=== PATIENT | female | born 1950 | race African-American/Black ===

== ENCOUNTER 2016-09-21 06:07 | Emergency (ER) | payer OTHER ==
[~2016-09-21] VITALS: Ht 162.6 cm; Wt 93.0 kg
[~2016-09-21 06:07] MED LIST: ASPIR-LOW81 MG PO; ASPIRIN81 M1 PO; BENAZEPRIL HCL5 MG PO; COREG6.25 MG PO; GLIPIZIDE5 M1 PO; GLUCOPHAGE500 MG PO; INSULIN; LANTUS5 UNITS SUBQ; LOTENSIN5 MG PO; METFORMIN HCL500 MG PO; PEPCID40 MG PO; SIMVASTATIN20 MG PO; SIMVASTATIN5 MG PO; UNOBMED
[2016-09-21 06:35] VITALS: BP 145/95
--- NOTE | 2016-09-21 07:12 | Emergency Room Report ---
History of Present Illness General Chief Complaint: General Complaint Source: Medical Record Present Illness HPI Patient is a 65-year-old female presented for generalized body pain. Patient stated she been having pain for many years. This had not change in nature. The patient reported having a prior history of COPD for which he takes Atrovent. As she reports having prior history of diabetes as well as high blood pressure. The patient states that she's had many years of the lower extremity swelling which has not been changing. Allergies: Coded Allergies: No Known Allergies (Unverified , 11/16/11) Patient History Past Medical History: see triage record Now: No Reviewed Nursing Documentation: PMH: Agreed, PSxH: Agreed Nursing Documentation-PMH Hx Cardiac Problems: Yes - [place] "2014, very recent" Hx Hypertension: Yes Hx Asthma: Yes Hx COPD: Yes Hx Diabetes: Yes Hx Cancer: No Hx Gastrointestinal Problems: Yes Hx Cerebrovascular Accident: Yes - "a long time ago" Review of Systems All Other Systems: negative except mentioned in HPI Physical Exam Vital Signs Date Time Temp Pulse Resp B/P Pulse Ox O2 Delivery O2 Flow Rate FiO2 09/21/16 06:07 97.9 89 16 137/89 98 General Appearance: well appearing, alert, GCS 15, Chronically Ill ENT: hearing grossly normal, normal pharynx, no angioedema Respiratory: chest non-tender, no rhonchi Cardiovascular #1: edema Gastrointestinal: non tender, soft, no mass Musculoskeletal: normal inspection Neurologic: normal inspection, alert Psychiatric: memory normal Skin: normal inspection Medical Decision Making Diagnostic Impression: Primary Impression: Pedal edema Additional Impression: Arthralgia ER Course This presented for generalized pain. Differential diagnosis included wasn't limited to electrolyte abnormality, edema, arthritis, allergic reaction, among others. The patient was noted to have what appears to be chronic pain. Patient was noted to be using her wheelchair. The patient stated that she had previously been diagnosed noticed as having lymph nodes in her lung. The patient seen and evaluated in emergency department and did not appear to have an emergency medical condition at this time. The patient subsequently left the hospital on her own accord. Last Vital Signs Date Time Temp Pulse Resp B/P Pulse Ox O2 Delivery O2 Flow Rate FiO2 09/21/16 06:07 97.9 89 16 137/89 98 Status: unchanged Disposition: ELOPED Condition: Stable Referrals: [facility],REFERRING (PCP) Corey Rodriguez Sep 21, 2016 07:12
== END 2016-09-21 06:35 | disposition left against medical advice (07) ==
LOC: EDBD 06:07 → EMR 06:20
DX: R60.0 Localized edema (principal); R52 Pain, unspecified; I10 Essential (primary) hypertension; J44.9 Chronic obstructive pulmonary disease, unspecified; I25.2 Old myocardial infarction; E11.9 Type 2 diabetes mellitus without complications; Z86.73 Personal history of transient ischemic attack (TIA), and cerebral infarction without residual deficits
CPT/HCPCS: 99283

== ENCOUNTER 2018-06-20 07:48 | Emergency (ER) | payer MEDICARE, OTHER ==
[~2018-06-20] VITALS: Ht 167.6 cm; Wt 72.6 kg
[2018-06-20] MEDS ORDERED: Albuterol/Ipratropium 3ml neb HHN ONE (08:00)
--- NOTE | 2018-06-20 08:09 | NUR ---
ED Nurse Note: pt was brought in by ambulance with chief complaint of generalized body weakness x [address] pt able to communicate. pt it incontinent. with moist skin. pt has productive cough, perineal care done, pt came with wheelchair and placed on bedside. ermd on bedside. will continue to monitor.
--- NOTE | 2018-06-20 08:25 | NUR ---
ED Nurse Note: rspiratory therapist on bedside giving pt nebulization
--- NOTE | 2018-06-20 08:29 | NUR ---
ED Nurse Note: able to obtain urine sample and was sent to lab.
--- NOTE | 2018-06-20 08:30 | NUR ---
ED Nurse Note: xray on bedside.
[2018-06-20 08:41] LABS: APPEARANCE,URINE CLEAR; BILIRUBIN, URINE NEGATIVE (NEGATIVE); GLUCOSE, URINE (UA) 3+ (NEGATIVE); KETONES,URINE NEGATIVE (NEGATIVE); LEUKOCYTE ESTERASE ,URINE 1+ (NEGATIVE); NITRITE,URINE NEGATIVE (NEGATIVE); PH,URINE 5 (4.5-8.0); PROTEIN,URINE 4+ (NEGATIVE); UROBILINOGEN,URINE NORMAL MG/DL (0.0-1.0)
[2018-06-20 08:54] LABS: COLOR,URINE YELLOW
[2018-06-20 08:59] VITALS: BP 162/90
[2018-06-20 09:00] LABS: BASOPHILS % (AUTO) 0.7 % (0.0-2.0); EOSINOPHILS % (AUTO) 1.9 % (0.0-3.0); HEMATOCRIT 40.1 % (37.0-47.0); HEMOGLOBIN 12.6 G/DL (12.0-16.0); LYMPHOCYTES % (AUTO) 21.3 % (20.0-45.0); MEAN CORPUSCULAR VOLUME 85 FL (80-99); MONOCYTES % (AUTO) 5.7 % (1.0-10.0); NEUTROPHILS % (AUTO) 70.5 % (45.0-75.0); PLATELET COUNT 227 K/UL (150-450); RED BLOOD COUNT 4.74 M/UL (4.20-5.40); RED CELL DISTRIBUTION WIDTH 13.1 % (11.6-14.8); WHITE BLOOD COUNT 7.6 K/UL (4.8-10.8)
[2018-06-20 09:09] LABS: ANION GAP 8 mmol/L (5-15); BLOOD UREA NITROGEN 29 mg/dL (7-18); CALCIUM 9.1 MG/DL (8.5-10.1); CARBON DIOXIDE 27 MMOL/L (21-32); CHLORIDE 102 MMOL/L (98-107); CREATININE 1.2 MG/DL (0.55-1.30); POTASSIUM 4.2 MMOL/L (3.5-5.1); SODIUM 137 MMOL/L (136-145)
[2018-06-20 09:24] LABS: ALANINE AMINOTRANSFERASE 29 U/L (12-78); ALBUMIN 2.5 G/DL (3.4-5.0); ALBUMIN/GLOBULIN RATIO 0.5 (1.0-2.7); ALKALINE PHOSPHATASE 90 U/L (46-116); ASPARTATE AMINO TRANSFERASE 29 U/L (15-37); BILIRUBIN,TOTAL 0.3 MG/DL (0.2-1.0); CKMB 0.9 NG/ML (0.0-3.6); CREATINE KINASE 80 U/L (26-308); PHOSPHORUS 3.7 MG/DL (2.5-4.9)
--- NOTE | 2018-06-20 09:36 | NUR ---
ED Nurse Note: pt asked for bedpan and provided, pt asked for food and provided.
--- NOTE | 2018-06-20 10:10 | NUR ---
ED Nurse Note: pt stated that she is not homeless and is currently living in [facility] located at [facility]. [facility] contacted [phone] to confirm but no answer at the moment. will follow up
--- NOTE | 2018-06-20 10:20 | NUR ---
ED Nurse Note: with ermd ordered and pt refused medication.ermd made aware
--- NOTE | 2018-06-20 10:34 | Diagnostic Imaging Report ---
Indication: Dyspnea Comparison: 12/29/2012 A single view chest radiograph was obtained. Findings: Suspected interstitial edema with interstitial opacities, prominent vascularity and heart size. Sternotomy is noted. IMPRESSION: Suspected mild CHF/interstitial edema
--- NOTE | 2018-06-20 11:20 | NUR ---
ED Nurse Note: pt attempted to hit RN and verbally aggressive. security called. pt stated she wants to go. pt noticed to able to stand without assistance.
[2018-06-20 11:30] VITALS: BP 162/90
--- NOTE | 2018-06-20 11:30 | NUR ---
AMA: pt left the hospital againts medical advise, pt was provided with clothing and given food. pt refused to tell where is she going. pt able to walk with steady gait along with her wheelchair and pt took all her belongings. iv removed before discharge. pt able to put on her own diaper before leaving. pt stated that she is not homeless and was living in [facility] for 2 months now.
--- NOTE | 2018-06-20 15:32 | Emergency Room Report ---
History of Present Illness General Chief Complaint: Generalized Weakness Source: Patient, EMS Present Illness HPI Patient is a 67-year-old female brought in by EMS after increased generalized weakness. Patient was noted to have been weak all over. She was noted to have some increased generalized difficulty with breathing. She had been brought in by EMS and is noted to be intermittently using a wheelchair.Patient had a prior history of bypass surgery. History is markedly limited by poor historian. Allergies: Coded Allergies: No Known Allergies (Unverified , 11/16/11) Patient History Reviewed Nursing Documentation: PMH: Agreed; PSxH: Agreed Nursing Documentation-PMH Past Medical History: No History, Except For Hx Cardiac Problems: Yes - [place] "2015, very recent" Hx Hypertension: Yes Hx Asthma: Yes - Emphysema Hx COPD: Yes Hx Diabetes: Yes Hx Cancer: No Hx Gastrointestinal Problems: Yes History Of Psychiatric Problem: Yes Hx Cerebrovascular Accident: Yes Hx Seizures: Yes Physical Exam Vital Signs Date Time Temp Pulse Resp B/P (MAP) Pulse Ox O2 Delivery O2 Flow Rate FiO2 06/20/18 07:43 97.5 80 16 162/90 100 Room Air 06/20/18 08:25 21 General Appearance: alert, mild distress, Chronically Ill Neck: limited range of motion Respiratory: wheezing Cardiovascular #1: normal inspection, edema - trace edema Gastrointestinal: normal inspection, non tender Musculoskeletal: normal inspection Neurologic: normal inspection, alert, oriented x3, responsive Skin: normal inspection Medical Decision Making Diagnostic Impression: Primary Impression: COPD (chronic obstructive pulmonary disease) Additional Impression: CHF (congestive heart failure) ER Course Patient presented for generalized weakness. Differential diagnosis included was not limited to anemia, urinary tract infection, electrolyte abnormality, hypothyroidism, myocardial infarction, myasthenia gravis, dehydration, among others. Because of complexity of patient's case laboratory testing and imaging studies were ordered. Patient was given breathing treatment. She was noted to have some generalized weakness initially. Patient subsequently stated she felt better and wanted to leave. Patient was noted to be ambulatory with assistance from her wheelchair which she was using similar to have a walker would be used.The patient was advised risk benefits alternatives of leaving AGAINST MEDICAL ADVICE and he indicated understanding and all questions are answered patient still continued want to leave and signed AGAINST MEDICAL ADVICE. Despite risks including but not limited to disability and worsening of current lifestyle. Labs Test 06/20/18 08:25 06/20/18 08:40 Urine Color Yellow Urine Appearance Clear Urine pH 5 (4.5-8.0) Urine Specific [place] 1.015 (1.005-1.035) Urine Protein 4+ (NEGATIVE) Urine Glucose (UA) 3+ (NEGATIVE) Urine Ketones Negative (NEGATIVE) Urine Blood 2+ (NEGATIVE) Urine Nitrite Negative (NEGATIVE) Urine Bilirubin Negative (NEGATIVE) Urine Urobilinogen Normal MG/DL (0.0-1.0) Urine Leukocyte Esterase 1+ (NEGATIVE) Urine RBC 2-4 /HPF (0 - 2) Urine WBC 0-2 /HPF (0 - 2) Urine Squamous Epithelial Cells Occasional /LPF Urine Bacteria Occasional /HPF (NONE) White Blood Count 7.6 K/UL (4.8-10.8) Red Blood Count 4.74 M/UL (4.20-5.40) Hemoglobin 12.6 G/DL (12.0-16.0) Hematocrit 40.1 % (37.0-47.0) Mean Corpuscular Volume 85 FL (80-99) Mean Corpuscular Hemoglobin 26.5 PG (27.0-31.0) Mean Corpuscular Hemoglobin Concent 31.3 G/DL (32.0-36.0) Red Cell Distribution Width 13.1 % (11.6-14.8) Platelet Count 227 K/UL (150-450) Mean Platelet Volume 7.5 FL (6.5-10.1) Neutrophils (%) (Auto) 70.5 % (45.0-75.0) Lymphocytes (%) (Auto) 21.3 % (20.0-45.0) Monocytes (%) (Auto) 5.7 % (1.0-10.0) Eosinophils (%) (Auto) 1.9 % (0.0-3.0) Basophils (%) (Auto) 0.7 % (0.0-2.0) Sodium Level 137 MMOL/L (136-145) Potassium Level 4.2 MMOL/L (3.5-5.1) Chloride Level 102 MMOL/L (98-107) Carbon Dioxide Level 27 MMOL/L (21-32) Anion Gap 8 mmol/L (5-15) Blood Urea Nitrogen 29 mg/dL (7-18) Creatinine 1.2 MG/DL (0.55-1.30) Estimat Glomerular Filtration Rate 54.5 mL/min (>60) Glucose Level 275 MG/DL (74-106) Lactic Acid Level 0.90 mmol/L (0.4-2.0) Calcium Level 9.1 MG/DL (8.5-10.1) Phosphorus Level 3.7 MG/DL (2.5-4.9) Magnesium Level 1.8 MG/DL (1.8-2.4) Total Bilirubin 0.3 MG/DL (0.2-1.0) Aspartate Amino Transf (AST/SGOT) 29 U/L (15-37) Alanine Aminotransferase (ALT/SGPT) 29 U/L (12-78) Alkaline Phosphatase 90 U/L (46-116) Total Creatine Kinase 80 U/L (26-308) Creatine Kinase MB 0.9 NG/ML (0.0-3.6) Creatine Kinase MB Relative Index 1.1 Troponin I 0.009 ng/mL (0.000-0.056) Pro-B-Type Natriuretic Peptide 4571 pg/mL (0-125) Total Protein 7.7 G/DL (6.4-8.2) Albumin 2.5 G/DL (3.4-5.0) Globulin 5.2 g/dL Albumin/Globulin Ratio 0.5 (1.0-2.7) Last Vital Signs Date Time Temp Pulse Resp B/P (MAP) Pulse Ox O2 Delivery O2 Flow Rate FiO2 06/20/18 08:59 98.3 89 22 162/90 99 Room Air 21 Status: improved Disposition: AGAINST MEDICAL ADVICE Condition: Stable Referrals: NOT CHOSEN [facility]/,REFERRING (PCP) Corey Rodriguez MD June 20, 2018 15:32
--- NOTE | 2018-06-20 17:40 | Cardiology Report ---
APPROVED REPORT EKG Measurement Heart [id number] Normal sinus rhythm Biatrial enlargement Voltage criteria for LVH Nonspecific T wave abnormality Prolonged QT Abnormal ECG
== END 2018-06-20 11:30 | disposition home or self-care (01) ==
LOC: EDBD 07:48 → EMR 08:15 → CANBEDREQ 11:50
DX: J44.9 Chronic obstructive pulmonary disease, unspecified (principal); I11.0 Hypertensive heart disease with heart failure; I50.9 Heart failure, unspecified; E11.9 Type 2 diabetes mellitus without complications; Z86.73 Personal history of transient ischemic attack (TIA), and cerebral infarction without residual deficits
CPT/HCPCS: 36415; 71045; 80053; 81003; 82550; 82553; 83605; 83735; 83880; 84100; 84484; 85025; 87040; 93005; 94640; 94664; 99284; J7620

== ENCOUNTER 2018-08-29 14:24 | Inpatient (IN) | payer MEDICARE, OTHER ==
[~2018-08-29] VITALS: Ht 167.6 cm; Wt 88.0 kg
--- NOTE | 2018-08-29 14:30 | NUR ---
ED Nurse Note: Patient brought in by ambulance from [facility] due to vomiting/abd pain for 1 day. patient is alert awake x4 breathing unlabored and even.
--- NOTE | 2018-08-29 14:42 | NUR ---
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
--- NOTE | 2018-08-29 14:54 | Emergency Room Report ---
History of Present Illness General Chief Complaint: Nausea, Vomiting, and Diarrhea Source: Patient, Medical Record Present Illness HPI This patient is brought in by EMS from a [id number]. This patient states that she developed nausea, vomiting and diarrhea today. She complains of diffuse crampy abdominal pain. She denies chest pain or shortness of breath. Allergies: Coded Allergies: No Known Allergies (Unverified , 11/16/11) Patient History Past Medical History: see triage record, old chart reviewed, DM, HTN, [place], CAD, COPD, GERD, CVA/TIA, seizures Past Surgical History: CABG, appy, oscar, Pertinent Family History: none Social History: Reports: drug use - Hx of polysubstance abuse Reviewed Nursing Documentation: PMH: Agreed; PSxH: Agreed Nursing Documentation-PMH Past Medical History: No History, Except For Hx Cardiac Problems: Yes - [place] "2014, very recent" Hx Hypertension: Yes Hx Asthma: Yes - Emphysema Hx COPD: Yes Hx Diabetes: Yes Hx Cancer: No Hx Gastrointestinal Problems: Yes Hx Cerebrovascular Accident: Yes Hx Seizures: Yes Review of Systems All Other Systems: negative except mentioned in HPI Physical Exam Vital Signs Date Time Temp Pulse Resp B/P (MAP) Pulse Ox O2 Delivery O2 Flow Rate FiO2 08/29/18 14:22 97.3 84 16 144/85 (104) 96 Room Air Sp02 EP Interpretation: reviewed, normal General Appearance: no apparent distress, alert, GCS 15, non-toxic Head: normocephalic, atraumatic ENT: hearing grossly normal, normal pharynx, no angioedema, normal voice Neck: full range of motion, supple/symm/no masses Respiratory: chest non-tender, lungs clear, normal breath sounds, no respiratory distress, no retraction, no accessory muscle use, speaking full sentences Cardiovascular #1: regular rate, rhythm, no edema Gastrointestinal: normal bowel sounds, soft, non-distended, no guarding, no rebound, tenderness - mild ttp diffusely Rectal: deferred Musculoskeletal: back normal, normal range of motion, swelling - BLE edema Neurologic: alert, oriented x3, responsive, speech normal, other - At baseline. Hx of CVA Psychiatric: judgement/insight normal, memory normal, mood/affect normal, no suicidal/homicidal ideation Skin: other - See RN skin exam Medical Decision Making Diagnostic Impression: Primary Impression: Pancreatitis Additional Impressions: Uncontrolled diabetes mellitus WILMAR (acute kidney injury) Nausea vomiting and diarrhea ER Course This patient is well-known to [facility]. She is medication noncompliance and has substance abuse and narcotic dependence. She presents with uncontrolled diabetes, acute kidney injury and mild pancreatitis. The patient has a complicated medical history and poor support system. She also has poor self-care. She is admitted for further evaluation and treatment. Laboratory Tests Test 08/29/18 15:05 08/29/18 16:17 White Blood Count 4.5 K/UL (4.8-10.8) L Red Blood Count 4.21 M/UL (4.20-5.40) Hemoglobin 11.2 G/DL (12.0-16.0) L Hematocrit 35.8 % (37.0-47.0) L Mean Corpuscular Volume 85 FL (80-99) Mean Corpuscular Hemoglobin 26.7 PG (27.0-31.0) L Mean Corpuscular Hemoglobin Concent 31.4 G/DL (32.0-36.0) L Red Cell Distribution Width 12.2 % (11.6-14.8) Platelet Count 144 K/UL (150-450) L Mean Platelet Volume 7.6 FL (6.5-10.1) Neutrophils (%) (Auto) 55.5 % (45.0-75.0) Lymphocytes (%) (Auto) 33.0 % (20.0-45.0) Monocytes (%) (Auto) 7.8 % (1.0-10.0) Eosinophils (%) (Auto) 2.6 % (0.0-3.0) Basophils (%) (Auto) 1.1 % (0.0-2.0) Sodium Level 137 MMOL/L (136-145) Potassium Level 4.1 MMOL/L (3.5-5.1) Chloride Level 103 MMOL/L (98-107) Carbon Dioxide Level 28 MMOL/L (21-32) Anion Gap 6 mmol/L (5-15) Blood Urea Nitrogen 31 mg/dL (7-18) H Creatinine 1.6 MG/DL (0.55-1.30) H Estimate Glomerular Filtration Rate 39.1 mL/min (>60) Glucose Level 410 MG/DL (74-106) H Calcium Level 9.2 MG/DL (8.5-10.1) Total Bilirubin 0.2 MG/DL (0.2-1.0) Aspartate Amino Transferase (AST) 31 U/L (15-37) Alanine Aminotransferase (ALT) 27 U/L (12-78) Alkaline Phosphatase 83 U/L (46-116) Total Protein 6.7 G/DL (6.4-8.2) Albumin 2.4 G/DL (3.4-5.0) L Globulin 4.3 g/dL Albumin/Globulin Ratio 0.6 (1.0-2.7) L Lipase 434 U/L (73-393) H Urine Color Pale yellow Urine Appearance Clear Urine pH 7 (4.5-8.0) Urine Specific [place] 1.010 (1.005-1.035) Urine Protein 3+ (NEGATIVE) H Urine Glucose (UA) 4+ (NEGATIVE) H Urine Ketones Negative (NEGATIVE) Urine Blood 1+ (NEGATIVE) H Urine Nitrite Negative (NEGATIVE) Urine Bilirubin Negative (NEGATIVE) Urine Urobilinogen Normal MG/DL (0.0-1.0) Urine Leukocyte Esterase Negative (NEGATIVE) Urine RBC 0-2 /HPF (0 - 2) Urine WBC 0-2 /HPF (0 - 2) Urine Squamous Epithelial Cells None /LPF (NONE/OCC) Urine Bacteria None /HPF (NONE) Last Vital Signs Date Time Temp Pulse Resp B/P (MAP) Pulse Ox O2 Delivery O2 Flow Rate FiO2 08/29/18 14:22 97.3 84 16 144/85 (104) 96 Room Air Disposition: ADMITTED INPATIENT Condition: Serious Shirlene Miles DO Aug 29, 2018 14:54
[2018-08-29 15:24] LABS: BASOPHILS % (AUTO) 1.1 % (0.0-2.0); EOSINOPHILS % (AUTO) 2.6 % (0.0-3.0); HEMATOCRIT 35.8 % (37.0-47.0); HEMOGLOBIN 11.2 G/DL (12.0-16.0); MEAN CORPUSCULAR VOLUME 85 FL (80-99); MONOCYTES % (AUTO) 7.8 % (1.0-10.0); NEUTROPHILS % (AUTO) 55.5 % (45.0-75.0); PLATELET COUNT 144 K/UL (150-450); RED BLOOD COUNT 4.21 M/UL (4.20-5.40); RED CELL DISTRIBUTION WIDTH 12.2 % (11.6-14.8); WHITE BLOOD COUNT 4.5 K/UL (4.8-10.8)
--- NOTE | 2018-08-29 15:37 | NUR ---
ED Nurse Note: patient had BM incontinent, provided soap/water/towel/diaper patient is cleaned and kept dry.
[2018-08-29 15:56] LABS: ANION GAP 6 mmol/L (5-15); BLOOD UREA NITROGEN 31 mg/dL (7-18); CALCIUM 9.2 MG/DL (8.5-10.1); CARBON DIOXIDE 28 MMOL/L (21-32); CHLORIDE 103 MMOL/L (98-107); CREATININE 1.6 MG/DL (0.55-1.30); POTASSIUM 4.1 MMOL/L (3.5-5.1); SODIUM 137 MMOL/L (136-145)
[2018-08-29 16:01] LABS: ALANINE AMINOTRANSFERASE 27 U/L (12-78); ALBUMIN 2.4 G/DL (3.4-5.0); ALBUMIN/GLOBULIN RATIO 0.6 (1.0-2.7); ALKALINE PHOSPHATASE 83 U/L (46-116); ASPARTATE AMINO TRANSFERASE 31 U/L (15-37); BILIRUBIN,TOTAL 0.2 MG/DL (0.2-1.0)
[2018-08-29 16:03] VITALS: BP 144/85
--- NOTE | 2018-08-29 16:17 | NUR ---
ED Nurse Note: notified Dr. Miles that patient is c/o arthritis pain and requesting dilaudid for pain.
[2018-08-29 17:05] LABS: APPEARANCE,URINE CLEAR; BILIRUBIN, URINE NEGATIVE (NEGATIVE); COLOR,URINE PALE YELLOW; GLUCOSE, URINE (UA) 4+ (NEGATIVE); KETONES,URINE NEGATIVE (NEGATIVE); LEUKOCYTE ESTERASE ,URINE NEGATIVE (NEGATIVE); NITRITE,URINE NEGATIVE (NEGATIVE); PH,URINE 7 (4.5-8.0); PROTEIN,URINE 3+ (NEGATIVE); UROBILINOGEN,URINE NORMAL MG/DL (0.0-1.0)
[2018-08-29] MEDS ORDERED: Morphine Sulfate 4mg/ml Inj (IV USE ONLY) IVP ONE (17:15)
[2018-08-29] MEDS ORDERED: Ketorolac 30mg Inj IV ONE (17:15)
--- NOTE | 2018-08-29 17:15 | NUR ---
ED Nurse Note: patient became extremely agitated, verbally abusive, "Why are you working so stupid?" and "how did your parents raise you up like that." patient insists that she needs pain medication,
--- NOTE | 2018-08-29 18:05 | NUR ---
ED Nurse Note: called kitchen for tray
--- NOTE | 2018-08-29 19:10 | NUR ---
HAND-OFF: Report given to Sachin BRYAN.
[2018-08-29] MEDS ORDERED: Nitroglycerin Subl 0.4mg tab SL PRN (20:00)
[2018-08-29] MEDS ORDERED: Dextrose 50% 25ml Syringe IV PRN (20:00)
[2018-08-29 20:12] VITALS: BP 153/80
--- NOTE | 2018-08-29 20:36 | NUR ---
TRANSFER TO FLOOR: Patient transferred to [facility] as ordered, per . Report given to Amaya,RN
--- NOTE | 2018-08-29 20:50 | NUR ---
NURSE NOTES: Received report from RANDI Stephenson in ED. Patient arrived on the floor at 2049. Patient is alert, awake, and verbally responsive to let her needs known. Patient is breathing unlabored and evenly without signs of distress, discomfort, or SOB noted at this time. No pain noted at this time. Patient's bed is at the lowest with brakes on and side rails up x 3 to assist with bed mobility and to promote safety. IV on the right upper arm noted and intact. Belongings reviewed and confirmed with RANDI Stephenson and patient at the bedside. Call light placed within reach. Will continue to monitor and provide care as ordered.
[2018-08-29] MEDS: Heparin 5000 units/ml inj SUBQ SCH (21:00)
[2018-08-29] MEDS ORDERED: Miralax 17gm pkt ORAL PRN (21:00)
[2018-08-29] MEDS: Carvedilol 6.25mg Tab ORAL SCH (21:59)
[2018-08-29] MEDS: NovoLOG Insulin Flexpen SUBQ SCH (22:02)
[2018-08-29] MEDS: Morphine Sulfate 4mg/ml Inj (IV USE ONLY) IVP PRN (23:36)
[2018-08-29 23:48] VITALS: BP 144/90
[2018-08-30] MEDS: Morphine Sulfate 4mg/ml Inj (IV USE ONLY) IVP PRN ×3 (03:36→17:44)
[2018-08-30 03:44] VITALS: BP 125/77
[2018-08-30] MEDS: Albuterol/Ipratropium 3ml neb HHN PRN (04:28)
--- NOTE | 2018-08-30 04:50 | NUR ---
NURSE NOTES: Patient was having dry cough that made her difficult to breath at 0400. PRN breathing treatment was given as ordered, warm water offered, and raised her HOB. Patient was still experienced difficulty due to excessive dry cough and requested for coughing medication. Notified and left a message to regarding the situation at 0410. No new orders given at that time. Patient's cough decreased around 0445. Will continue to monitor and provide care as ordered.
--- NOTE | 2018-08-30 05:19 | NUR ---
NURSE NOTES: Patient complained of chest pain / and requested nitroglycerin. Patient verbalized that her chest pain "got better" after one tablet of nitroglycerin, administered at 0500. Asked patient more than three times to confirm that she is not experiencing chest pain. Patient said "yes". Blood pressure after the nitroglycerin went down to 136/76 from 149/90. Patient is stable and breathing evenly and unlabored on room air. No apparent distress noted at this time. Call light placed within reach to call for any assistance needed. Will continue to monitor and provide care as needed.
[2018-08-30] MEDS: NovoLOG Insulin Flexpen SUBQ SCH ×4 (06:13→20:24)
[2018-08-30 06:37] LABS: BASOPHILS % (AUTO) 0.9 % (0.0-2.0); EOSINOPHILS % (AUTO) 3.7 % (0.0-3.0); HEMATOCRIT 32.5 % (37.0-47.0); HEMOGLOBIN 10.1 G/DL (12.0-16.0); LYMPHOCYTES % (AUTO) 40.5 % (20.0-45.0); MEAN CORPUSCULAR VOLUME 86 FL (80-99); MONOCYTES % (AUTO) 6.8 % (1.0-10.0); NEUTROPHILS % (AUTO) 48.1 % (45.0-75.0); PLATELET COUNT 145 K/UL (150-450); RED BLOOD COUNT 3.76 M/UL (4.20-5.40); RED CELL DISTRIBUTION WIDTH 12.3 % (11.6-14.8); WHITE BLOOD COUNT 4.6 K/UL (4.8-10.8)
[2018-08-30 07:24] LABS: ALANINE AMINOTRANSFERASE 19 U/L (12-78); ALBUMIN 2.1 G/DL (3.4-5.0); ALBUMIN/GLOBULIN RATIO 0.6 (1.0-2.7); ALKALINE PHOSPHATASE 72 U/L (46-116); ANION GAP 6 mmol/L (5-15); ASPARTATE AMINO TRANSFERASE 32 U/L (15-37); BILIRUBIN,TOTAL 0.1 MG/DL (0.2-1.0); BLOOD UREA NITROGEN 31 mg/dL (7-18); CALCIUM 8.6 MG/DL (8.5-10.1); CARBON DIOXIDE 26 MMOL/L (21-32); CHLORIDE 109 MMOL/L (98-107); CHOLESTEROL 144 MG/DL (< 200); CREATININE 1.5 MG/DL (0.55-1.30); HDL CHOLESTEROL 82 MG/DL (40-60); POTASSIUM 4.4 MMOL/L (3.5-5.1); SODIUM 141 MMOL/L (136-145); TRIGLYCERIDES 73 MG/DL (30-150)
--- NOTE | 2018-08-30 07:30 | NUR ---
HAND-OFF: Report given to RANDI Weaver. Patient in stable condition, eating breakfast.
--- NOTE | 2018-08-30 07:33 | NUR ---
NURSE NOTES: received pt in bed, no sign of acute distress noted. Own wheelchair by the bedside. IV access on GENE, no sign of infiltration noted, receives IVF. Bed locked at the lowest position possible, call light within easy reach, siderails up x3. Will continue to monitor pt and follow up on the plan of care.
[2018-08-30 08:00] VITALS: BP 134/95
[2018-08-30] MEDS: Heparin 5000 units/ml inj SUBQ SCH ×2 (08:31→20:22)
[2018-08-30] MEDS: Carvedilol 6.25mg Tab ORAL SCH ×2 (09:56→20:22)
--- NOTE | 2018-08-30 10:20 | NUR ---
Social Service Note SW met with patient to assess for homelessness. Patient is alert, oriented and verbally responsive. Patient resides in a homeless housing program through [facility]. Patient program is located at the [facility] [address] [place] [id number], . Patient is unhappy with this housing option and requested for SW to speak with her case mangsukumar Alberts at [facility] [phone]. Patient states she doesn't like rules and that the people their are to nosey. Patient would like placement closer to her mother Trixie Newsome [phone]. Patient is unable to stay with her mother because she cannot get alone with her own children. Patient stated upon discharge she will decided if she will return to her housing program or sleep on her mother's patio. SW encouraged patient to return to her housing program. SW contacted [facility]. [facility] states patient has resided at the [facility] through [facility] since December. [employer] states patient is difficult to work with and creates her own barriers. [facility] is aware of patient's request and [facility] is attempting to locate alternative housing options. Patient is not interested in board and care placement or any placement which will take the majority of her money. Patient with own w/c at bedside. Patient denies mental health disorders and substance abuse issues. Follow up appointment arranged with PCP at [facility] [address] [place] [place] [id number], , September 10 at 8:40am. Will continue to monitor and be available as needed.
[2018-08-30 12:00] VITALS: BP 140/90
--- NOTE | 2018-08-30 12:41 | Consultation ---
History of Present Illness General Date patient seen: Aug 30, 2018 Chief Complaint: Nausea, Vomiting, and Diarrhea Present Illness HPI 67 year old AA female with hx of DM, HTN, DC, CAD, COPD, GERD, CVA/TIA, seizures brought in by EMS from a [id number] facility with CC of nausea, vomiting and diarrhea. She complains of diffuse crampy abdominal pain. She denies chest pain or shortness of breath. She was found to have hyperglycemia and ATN and admitted for further management. Allergies: Coded Allergies: No Known Allergies (Unverified , 11/16/11) Medication History Scheduled Aspirin* (Aspir-Low*), 81 MG PO DAILY, (Reported) Carvedilol (Coreg), 6.25 MG PO Q12H, (Reported) Famotidine (Pepcid), 40 MG PO DAILY, (Reported) Metformin Hcl* (Glucophage*), 500 MG PO BID, (Reported) Simvastatin (Zocor), 20 MG PO QHS, (Reported) Miscellaneous Medications Benazepril Hcl* (Lotensin*), 0 PO, (Reported) Glipizide (Glipizide), 0 PO, (Reported) Insulin Glargine (Lantus), 0 SUBQ, (Reported) Unable to Obtain Medications (Unable To Obtain Meds), (Reported) [Insulin], (Reported) Patient History Healthcare decision maker N Resuscitation status Full Code Advanced Directive on File Past Medical/Surgical History Past Medical/Surgical History: (1) History of CVA with residual deficit (2) History of seizure (3) CHF (congestive heart failure) (4) COPD (chronic obstructive pulmonary disease) Review of Systems All Other Systems: negative except mentioned in HPI Physical Exam Lines, tubes and drains: peripheral HEENT: normocephalic, atraumatic Neck: non-tender, normal alignment Respiratory/Chest: chest wall non-tender, normal breath sounds Cardiovascular/Chest: normal peripheral pulses, regular rhythm Genitourinary/Rectal: normal genital exam Extremities: normal range of motion Last 24 Hour Vital Signs Date Time Temp Pulse Resp B/P (MAP) Pulse Ox O2 Delivery O2 Flow Rate FiO2 08/30/18 10:27 96.2 08/30/18 09:56 80 134/95 08/30/18 09:00 Room Air 08/30/18 08:00 96.2 80 19 134/95 (108) 98 08/30/18 05:03 149/90 08/30/18 04:38 81 20 100 Nasal Cannula 2.0 28 08/30/18 04:31 78 18 97 Room Air 21 08/30/18 04:28 78 18 98 Room Air 21 08/30/18 03:44 98.2 75 19 125/77 (93) 97 08/29/18 23:48 97.5 92 18 144/90 (108) 98 08/29/18 22:28 Room Air 08/29/18 21:59 86 153/79 08/29/18 20:36 98.2 86 18 153/79 98 Room Air 08/29/18 20:12 97.3 82 16 153/80 96 Room Air 08/29/18 17:48 97.3 08/29/18 17:48 97.3 08/29/18 16:03 97.3 79 16 144/85 96 Room Air 08/29/18 14:22 97.3 84 16 144/85 (104) 96 Room Air Intake and Output 08/29/18 08/30/18 19:00 07:00 Intake Total 800 ml Balance 800 ml IV Total 800 ml # Voids 2 Laboratory Tests Test 08/29/18 15:05 08/29/18 16:17 08/30/18 05:50 White Blood Count 4.5 K/UL (4.8-10.8) L 4.6 K/UL (4.8-10.8) L Red Blood Count 4.21 M/UL (4.20-5.40) 3.76 M/UL (4.20-5.40) L Hemoglobin 11.2 G/DL (12.0-16.0) L 10.1 G/DL (12.0-16.0) L Hematocrit 35.8 % (37.0-47.0) L 32.5 % (37.0-47.0) L Mean Corpuscular Volume 85 FL (80-99) 86 FL (80-99) Mean Corpuscular Hemoglobin 26.7 PG (27.0-31.0) L 26.9 PG (27.0-31.0) L Mean Corpuscular Hemoglobin Concent 31.4 G/DL (32.0-36.0) L 31.1 G/DL (32.0-36.0) L Red Cell Distribution Width 12.2 % (11.6-14.8) 12.3 % (11.6-14.8) Platelet Count 144 K/UL (150-450) L 145 K/UL (150-450) L Mean Platelet Volume 7.6 FL (6.5-10.1) 8.2 FL (6.5-10.1) Neutrophils (%) (Auto) 55.5 % (45.0-75.0) 48.1 % (45.0-75.0) Lymphocytes (%) (Auto) 33.0 % (20.0-45.0) 40.5 % (20.0-45.0) Monocytes (%) (Auto) 7.8 % (1.0-10.0) 6.8 % (1.0-10.0) Eosinophils (%) (Auto) 2.6 % (0.0-3.0) 3.7 % (0.0-3.0) H Basophils (%) (Auto) 1.1 % (0.0-2.0) 0.9 % (0.0-2.0) Sodium Level 137 MMOL/L (136-145) 141 MMOL/L (136-145) Potassium Level 4.1 MMOL/L (3.5-5.1) 4.4 MMOL/L (3.5-5.1) Chloride Level 103 MMOL/L (98-107) 109 MMOL/L (98-107) H Carbon Dioxide Level 28 MMOL/L (21-32) 26 MMOL/L (21-32) Anion Gap 6 mmol/L (5-15) 6 mmol/L (5-15) Blood Urea Nitrogen 31 mg/dL (7-18) H 31 mg/dL (7-18) H Creatinine 1.6 MG/DL (0.55-1.30) H 1.5 MG/DL (0.55-1.30) H Estimat Glomerular Filtration Rate 39.1 mL/min (>60) 42.1 mL/min (>60) Glucose Level 410 MG/DL (74-106) H 166 MG/DL (74-106) #H Calcium Level 9.2 MG/DL (8.5-10.1) 8.6 MG/DL (8.5-10.1) Total Bilirubin 0.2 MG/DL (0.2-1.0) 0.1 MG/DL (0.2-1.0) L Aspartate Amino Transf (AST/SGOT) 31 U/L (15-37) 32 U/L (15-37) Alanine Aminotransferase (ALT/SGPT) 27 U/L (12-78) 19 U/L (12-78) Alkaline Phosphatase 83 U/L (46-116) 72 U/L (46-116) Total Protein 6.7 G/DL (6.4-8.2) 5.7 G/DL (6.4-8.2) L Albumin 2.4 G/DL (3.4-5.0) L 2.1 G/DL (3.4-5.0) L Globulin 4.3 g/dL 3.6 g/dL Albumin/Globulin Ratio 0.6 (1.0-2.7) L 0.6 (1.0-2.7) L Lipase 434 U/L (73-393) H Urine Color Pale yellow Urine Appearance Clear Urine pH 7 (4.5-8.0) Urine Specific [place] 1.010 (1.005-1.035) Urine Protein 3+ (NEGATIVE) H Urine Glucose (UA) 4+ (NEGATIVE) H Urine Ketones Negative (NEGATIVE) Urine Blood 1+ (NEGATIVE) H Urine Nitrite Negative (NEGATIVE) Urine Bilirubin Negative (NEGATIVE) Urine Urobilinogen Normal MG/DL (0.0-1.0) Urine Leukocyte Esterase Negative (NEGATIVE) Urine RBC 0-2 /HPF (0 - 2) Urine WBC 0-2 /HPF (0 - 2) Urine Squamous Epithelial Cells None /LPF (NONE/OCC) Urine Bacteria None /HPF (NONE) Hemoglobin A1c 13.1 % (4.3-6.0) H Triglycerides Level 73 MG/DL (30-150) Cholesterol Level 144 MG/DL (< 200) LDL Cholesterol 57 mg/dL (<100) HDL Cholesterol 82 MG/DL (40-60) H Cholesterol/HDL Ratio 1.8 (3.3-4.4) L Thyroid Stimulating Hormone (TSH) 6.382 uiU/mL (0.358-3.740) Height (Feet): 5 Height (Inches): 6.00 Weight (Pounds): 194 Medications Current Medications Medications (Trade) Dose Ordered Sig/Cassie Route PRN Reason Start Time Stop Time Status Last Admin Dose Admin Acetaminophen (Tylenol) 650 mg Q4H PRN ORAL T>100.5 08/29/18 19:45 09/28/18 19:44 Albuterol/ Ipratropium (Albuterol/ Ipratropium) 3 ml Q4H PRN HHN Shortness of Breath 08/29/18 19:45 09/03/18 19:44 08/30/18 04:28 Carvedilol (Coreg) 6.25 mg Q12HR ORAL 08/29/18 21:00 09/28/18 20:59 08/30/18 09:56 Clonidine HCl (Catapres Tab) 0.1 mg Q4H PRN ORAL sbp more than 160 08/29/18 19:45 09/28/18 19:44 Dextrose (Dextrose 50%) 25 ml Q30M PRN IV Hypoglycemia 08/29/18 20:00 09/28/18 19:54 Dextrose (Dextrose 50%) 50 ml Q30M PRN IV hypoglycemia 08/29/18 20:00 09/28/18 19:59 Heparin Sodium (Porcine) (Heparin 5000 units/ml) 5,000 units EVERY 12 HOURS SUBQ 08/29/18 21:00 09/28/18 20:59 Insulin Aspart (NovoLOG) BEFORE MEALS AND HS SUBQ 08/29/18 21:30 09/28/18 21:29 08/30/18 12:08 Morphine Sulfate (Morphine Sulfate) 4 mg Q4H PRN IVP For Pain 08/29/18 23:00 09/05/18 22:59 08/30/18 09:57 Nitroglycerin (Ntg) 0.4 mg Q5MIN X 3 DOSES PRN SL Prn Chest Pain 08/29/18 20:00 09/28/18 19:59 08/30/18 05:03 Ondansetron HCl (Zofran) 4 mg Q6H PRN IVP Nausea & Vomiting 08/29/18 19:45 09/28/18 19:44 Polyethylene Glycol (Miralax) 17 gm HSPRN PRN ORAL Constipation 08/29/18 21:00 09/28/18 20:59 Sodium Chloride 1,000 ml @ 100 mls/hr Q10H IVLG 08/29/18 21:00 09/28/18 20:59 08/30/18 06:14 Temazepam (Restoril) 15 mg HSPRN PRN ORAL Insomnia 08/29/18 21:00 09/05/18 20:59 Assessment/Plan Problem List: (1) Nausea, vomiting, and diarrhea ICD Codes: R11.2 - Nausea with vomiting, unspecified; R19.7 - Diarrhea, unspecified SNOMED: 7211633 (2) Uncontrolled diabetes mellitus ICD Codes: E11.65 - Type 2 diabetes mellitus with hyperglycemia SNOMED: 02261825, 709041059 (3) COPD (chronic obstructive pulmonary disease) ICD Codes: J44.9 - Chronic obstructive pulmonary disease, unspecified SNOMED: 92722554 (4) History of CVA with residual deficit ICD Codes: I69.30 - Unspecified sequelae of cerebral infarction SNOMED: 401380504 (5) History of seizure ICD Codes: Z87.898 - Personal history of other specified conditions SNOMED: 121630812 Assessment/Plan: IV fluids check electrolytes renal studies sliding scale diabetic diet GI and Endo to see. Dave Cummings MD Aug 30, 2018 12:41
--- NOTE | 2018-08-30 13:21 | GI Initial Consult Note ---
History of Present Illness General Date patient seen: Aug 30, 2018 Time patient seen: 13:14 Reason for Hospitalization: Nausea, Vomiting, and Diarrhea Referring physician: SINDY Reason for Consultation: N/V Present Illness HPI This patient is brought in by EMS from a [id number] facility. This patient states that she developed nausea, vomiting and diarrhea today. She complains of diffuse crampy abdominal pain. She denies chest pain or shortness of breath. GI consulted for reported nausea vomiting, diarrhea. Patient seen, awake alert oriented x2 No apparent distress. The patient reports generalized abdominal pain. Abdomen is soft, nontender, nondistended. The patient stated she had upper endoscopy and colonoscopy many many years ago but unable to recall any results. No noted active signs symptoms any nausea vomiting. Labs reviewed; WBC of 4.6, hemoglobin 10.11, initial glucose level of 410 which is now 166, creatinine 1.5, TSH 6.1, lipase level 424. Home Meds Reported Medications Unable to Obtain Medications (UNABLE TO OBTAIN MEDS) 1 Ea Ea 12/29/12 Metformin Hcl* (GLUCOPHAGE*) 500 Mg Tablet, 500 MG PO BID, #20 TAB Take one tablet by mouth twice a day 02/07/12 Insulin Glargine (Lantus) 5 Units Vial, 0 SUBQ 02/07/12 Famotidine (PEPCID) 40 Mg Tablet, 40 MG PO DAILY, #7 TAB 02/07/12 Simvastatin (ZOCOR) 20 Mg Tablet, 20 MG PO QHS 02/07/12 Aspirin* (ASPIR-LOW*) 81 Mg Tablet.dr, 81 MG PO DAILY, TAB 02/07/12 Carvedilol (Coreg) 6.25 Mg Tab, 6.25 MG PO Q12H, #20 TAB 02/07/12 [Insulin] No Conflict Check 11/16/11 Glipizide (GLIPIZIDE) 5 Mg Tab, 0 PO 11/16/11 Benazepril Hcl* (LOTENSIN*) 5 Mg Tablet, 0 PO 11/16/11 Med list reviewed/reconciled: Yes Allergies: Coded Allergies: No Known Allergies (Unverified , 11/16/11) Patient History Limited by: medical condition History Provided By: Patient, Medical Record PMH Narrative Past Medical History: see triage record, old chart reviewed, DM, HTN, [place], CAD, COPD, GERD, CVA/TIA, seizures Past Surgical History: CABG, appy, oscar, Pertinent Family History: none Social History: Reports: drug use - Hx of polysubstance abuse Reviewed Nursing Documentation: PMH: Agreed; PSxH: Agreed Nursing Documentation-PMH Past Medical History: No History, Except For Hx Cardiac Problems: Yes - [place] "2014, very recent" Hx Hypertension: Yes Hx Asthma: Yes - Emphysema Hx COPD: Yes Hx Diabetes: Yes Hx Cancer: No Hx Gastrointestinal Problems: Yes Hx Cerebrovascular Accident: Yes Hx Seizures: Yes Social History: Denies: smoking, alcohol use, drug use, other Review of Systems All Other Systems: negative except mentioned in HPI Physical Exam Vital Signs Date Time Temp Pulse Resp B/P (MAP) Pulse Ox O2 Delivery O2 Flow Rate FiO2 08/29/18 14:22 97.3 84 16 144/85 (104) 96 Room Air 08/30/18 04:28 21 08/30/18 04:38 2.0 Sp02 EP Interpretation: reviewed, normal Labs Laboratory Tests Test 08/29/18 15:05 08/29/18 16:17 08/30/18 05:50 White Blood Count 4.5 K/UL (4.8-10.8) L 4.6 K/UL (4.8-10.8) L Red Blood Count 4.21 M/UL (4.20-5.40) 3.76 M/UL (4.20-5.40) L Hemoglobin 11.2 G/DL (12.0-16.0) L 10.1 G/DL (12.0-16.0) L Hematocrit 35.8 % (37.0-47.0) L 32.5 % (37.0-47.0) L Mean Corpuscular Volume 85 FL (80-99) 86 FL (80-99) Mean Corpuscular Hemoglobin 26.7 PG (27.0-31.0) L 26.9 PG (27.0-31.0) L Mean Corpuscular Hemoglobin Concent 31.4 G/DL (32.0-36.0) L 31.1 G/DL (32.0-36.0) L Red Cell Distribution Width 12.2 % (11.6-14.8) 12.3 % (11.6-14.8) Platelet Count 144 K/UL (150-450) L 145 K/UL (150-450) L Mean Platelet Volume 7.6 FL (6.5-10.1) 8.2 FL (6.5-10.1) Neutrophils (%) (Auto) 55.5 % (45.0-75.0) 48.1 % (45.0-75.0) Lymphocytes (%) (Auto) 33.0 % (20.0-45.0) 40.5 % (20.0-45.0) Monocytes (%) (Auto) 7.8 % (1.0-10.0) 6.8 % (1.0-10.0) Eosinophils (%) (Auto) 2.6 % (0.0-3.0) 3.7 % (0.0-3.0) H Basophils (%) (Auto) 1.1 % (0.0-2.0) 0.9 % (0.0-2.0) Sodium Level 137 MMOL/L (136-145) 141 MMOL/L (136-145) Potassium Level 4.1 MMOL/L (3.5-5.1) 4.4 MMOL/L (3.5-5.1) Chloride Level 103 MMOL/L (98-107) 109 MMOL/L (98-107) H Carbon Dioxide Level 28 MMOL/L (21-32) 26 MMOL/L (21-32) Anion Gap 6 mmol/L (5-15) 6 mmol/L (5-15) Blood Urea Nitrogen 31 mg/dL (7-18) H 31 mg/dL (7-18) H Creatinine 1.6 MG/DL (0.55-1.30) H 1.5 MG/DL (0.55-1.30) H Estimat Glomerular Filtration Rate 39.1 mL/min (>60) 42.1 mL/min (>60) Glucose Level 410 MG/DL (74-106) H 166 MG/DL (74-106) #H Calcium Level 9.2 MG/DL (8.5-10.1) 8.6 MG/DL (8.5-10.1) Total Bilirubin 0.2 MG/DL (0.2-1.0) 0.1 MG/DL (0.2-1.0) L Aspartate Amino Transf (AST/SGOT) 31 U/L (15-37) 32 U/L (15-37) Alanine Aminotransferase (ALT/SGPT) 27 U/L (12-78) 19 U/L (12-78) Alkaline Phosphatase 83 U/L (46-116) 72 U/L (46-116) Total Protein 6.7 G/DL (6.4-8.2) 5.7 G/DL (6.4-8.2) L Albumin 2.4 G/DL (3.4-5.0) L 2.1 G/DL (3.4-5.0) L Globulin 4.3 g/dL 3.6 g/dL Albumin/Globulin Ratio 0.6 (1.0-2.7) L 0.6 (1.0-2.7) L Lipase 434 U/L (73-393) H Urine Color Pale yellow Urine Appearance Clear Urine pH 7 (4.5-8.0) Urine Specific [place] 1.010 (1.005-1.035) Urine Protein 3+ (NEGATIVE) H Urine Glucose (UA) 4+ (NEGATIVE) H Urine Ketones Negative (NEGATIVE) Urine Blood 1+ (NEGATIVE) H Urine Nitrite Negative (NEGATIVE) Urine Bilirubin Negative (NEGATIVE) Urine Urobilinogen Normal MG/DL (0.0-1.0) Urine Leukocyte Esterase Negative (NEGATIVE) Urine RBC 0-2 /HPF (0 - 2) Urine WBC 0-2 /HPF (0 - 2) Urine Squamous Epithelial Cells None /LPF (NONE/OCC) Urine Bacteria None /HPF (NONE) Hemoglobin A1c 13.1 % (4.3-6.0) H Triglycerides Level 73 MG/DL (30-150) Cholesterol Level 144 MG/DL (< 200) LDL Cholesterol 57 mg/dL (<100) HDL Cholesterol 82 MG/DL (40-60) H Cholesterol/HDL Ratio 1.8 (3.3-4.4) L Thyroid Stimulating Hormone (TSH) 6.382 uiU/mL (0.358-3.740) General Appearance: well appearing, no apparent distress, alert Head: normocephalic EENT: PERRL/EOMI, normal ENT inspection Neck: supple Respiratory: normal breath sounds, no respiratory distress Cardiovascular: normal rate Gastrointestinal: normal inspection, non tender, soft, normal bowel sounds, non -distended Rectal: deferred Genitourinary: no CVA tenderness Musculoskeletal: normal inspection, back normal Neurologic: normal inspection, alert, oriented x3, responsive Psychiatric: normal inspection, judgement/insight normal, memory normal Skin: normal inspection, normal color, no rash, warm/dry, palpation normal, well hydrated Lymphatic: normal inspection, no adenopathy Current Medications Current Medications Medications (Trade) Dose Ordered Sig/Cassie Route PRN Reason Start Time Stop Time Status Last Admin Dose Admin Acetaminophen (Tylenol) 650 mg Q4H PRN ORAL T>100.5 08/29/18 19:45 09/28/18 19:44 Albuterol/ Ipratropium (Albuterol/ Ipratropium) 3 ml Q4H PRN HHN Shortness of Breath 08/29/18 19:45 09/03/18 19:44 08/30/18 04:28 Carvedilol (Coreg) 6.25 mg Q12HR ORAL 08/29/18 21:00 09/28/18 20:59 08/30/18 09:56 Clonidine HCl (Catapres Tab) 0.1 mg Q4H PRN ORAL sbp more than 160 08/29/18 19:45 09/28/18 19:44 Dextrose (Dextrose 50%) 25 ml Q30M PRN IV Hypoglycemia 08/29/18 20:00 09/28/18 19:54 Dextrose (Dextrose 50%) 50 ml Q30M PRN IV hypoglycemia 08/29/18 20:00 09/28/18 19:59 Heparin Sodium (Porcine) (Heparin 5000 units/ml) 5,000 units EVERY 12 HOURS SUBQ 08/29/18 21:00 09/28/18 20:59 Insulin Aspart (NovoLOG) BEFORE MEALS AND HS SUBQ 08/29/18 21:30 09/28/18 21:29 08/30/18 12:08 Morphine Sulfate (Morphine Sulfate) 4 mg Q4H PRN IVP For Pain 08/29/18 23:00 09/05/18 22:59 08/30/18 09:57 Nitroglycerin (Ntg) 0.4 mg Q5MIN X 3 DOSES PRN SL Prn Chest Pain 08/29/18 20:00 09/28/18 19:59 08/30/18 05:03 Ondansetron HCl (Zofran) 4 mg Q6H PRN IVP Nausea & Vomiting 08/29/18 19:45 09/28/18 19:44 Polyethylene Glycol (Miralax) 17 gm HSPRN PRN ORAL Constipation 08/29/18 21:00 09/28/18 20:59 Sodium Chloride 1,000 ml @ 100 mls/hr Q10H IVLG 08/29/18 21:00 09/28/18 20:59 08/30/18 06:14 Temazepam (Restoril) 15 mg HSPRN PRN ORAL Insomnia 08/29/18 21:00 09/05/18 20:59 GI: Plan Problems: (1) Diabetes mellitus (2) Nausea, vomiting, and diarrhea (3) Pancreatitis (4) History of CVA with residual deficit (5) Uncontrolled diabetes mellitus Plan At this time there is no reported nausea vomiting. Zofran as needed, Reglan for persistent vomiting. Observe for renal insufficiency. We will consider endoscopy if patient has persistent abdominal pain and nausea vomiting Obtain abdominal pelvis CT to evaluate abdominal pain anemia work up PPI Diabetes management Advance diet as tolerated Collect C. difficile to rule out infectious colitis electrolyte correction Discussed with Dr. Quintana. Thank you for this patient referral, we will follow. The patient was seen and examined at bedside and all new and available data was reviewed in the patients chart. I agree with the above findings, impression and plan. (Patient seen earlier today. Signature stamp does not reflect patient encounter time.). - MD Bridget [facility]JUNCT PSYCHOLOGY FACULTY MEMBER Aug 30, 2018 13:21
[2018-08-30] MEDS ORDERED: Isovue-300 100ml vial INJ PRN (13:30)
[2018-08-30] MEDS ORDERED: Gastrograffin 30ml RECTAL PRN (13:30)
--- NOTE | 2018-08-30 13:42 | NUR ---
Pt had lunch. RN will keep pt NPO after midnight. CT To be done Sunday08/31/18 in the morning. JOSELO/
[2018-08-30 15:01] LABS: LACTATE DEHYDROGENASE 328 U/L (81-234)
[2018-08-30 15:03] LABS: % IRON SATURATION 19 % (15-50); IRON 57 ug/dL (50-175); TOTAL IRON BINDING CAPACITY 307 ug/dL (250-450)
--- NOTE | 2018-08-30 15:14 | NUR ---
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 CC:NAUSEA . VOMITING . DIARRHEA SI:PANCREATITIS . WILMAR . DEHYDRATION VS: BP 153/80, P 84, T 97.4, RR 16, SpO2 97.4 WBC 4.5, H&H 11.2/35.8, PlT COUNT 144, BUN 44, CR 1.6 IS:NS x1L IV MORPHINE SULFATE 4mg IVP NS x1L IV TORADOL 30mg IV NS x1L IV ZOFRAN 4mf IVP ADMITTED TO MED/SURG DCP: RETURN HOME
--- NOTE | 2018-08-30 15:36 | NUR ---
INSURANCE CLINICALS AND REVIEWS FAXED TO p- [phone] f- [phone].....REVIEW/CLINICAL
[2018-08-30 15:42] LABS: INR 0.9 (0.9-1.1)
[2018-08-30 15:43] LABS: CREATINE KINASE 100 U/L (26-308)
[2018-08-30 16:00] VITALS: BP 141/75
--- NOTE | 2018-08-30 17:38 | History & Physical ---
History and Physical History & Physicial Emanuel Kc MD Aug 30, 2018 17:38
--- NOTE | 2018-08-30 17:56 | NUR ---
HOMELESS COORDINATOR HC spoke with patient and patient is alert and oriented. Patient does not have a contact number. Patient uses a wheelchair at beside. Patient is currently living at [facility]. [address] [place] [address]. [place] [id number] . Patient states she has been living there since December, and has been homeless for 7 years. 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 Patient states she only uses marijuana, which is not a drug to her. Patient denies any mental health illness. Patient plan is to return to [facility] upon discharge. Patient is requesting a taxi voucher. HC spoke with Lubna, Lubna states it is okay for patient to return and to please provide date and time of arrival. . Patient has follow-up Appt 09/10/18 @ 8:40am, [facility] [address] [address]. Patient continues to require medical intervention. Will continue to monitor and assist as needed.
--- NOTE | 2018-08-30 19:15 | NUR ---
HAND-OFF: Report given to RANDI Marte.
[2018-08-30 20:00] VITALS: BP 141/83
--- NOTE | 2018-08-30 20:00 | History and Physical Report ---
DATE OF ADMISSION: 08/29/2018 CHIEF COMPLAINT: Intractable nausea, vomiting, and diarrhea. HISTORY OF PRESENT ILLNESS: This is a 67 years old female with past medical history significant for diabetes type 2, uncontrolled hypertension, coronary artery disease with prior history of myocardial infarction in 2014, history of asthma, emphysema, COPD, prior history of stroke, and seizure disorder. The patient has a history of CABG, appendectomy, cholecystectomy, and , who was presented to the hospital complaining about nausea and vomiting associated with diarrhea from [facility]. The patient diffuse abdominal pain. Denies any chest pain or shortness of breath. The patient shortly after initial evaluation in the emergency room, she was admitted to the hospital with abdominal pain, nausea, and vomiting, possibly due to pancreatitis versus other abdominal etiologies such as inflammatory bowel disease. The patient was noted to have upper endoscopy and colonoscopy many years ago. Lipase was noted to be 424 on admission. PAST MEDICAL HISTORY AND PAST SURGICAL HISTORY: As above, history of diabetes type 2, uncontrolled hypertension, coronary artery disease, prior history of myocardial infarction in 2014, history of GERD, COPD, CVA with TIA, seizure disorder, CABG, appendectomy, cholecystectomy, , and history of polysubstance abuse. MEDICATIONS: Medications at home significant for metformin, Lantus insulin, Pepcid, Zocor, aspirin, Coreg, glipizide, and benazepril. ALLERGIES: No known drug allergies. SOCIAL HISTORY: The patient has a history of substance abuse in the past. No alcohol abuse. Living in [facility]. FAMILY HISTORY: Noncontributory. REVIEW OF SYSTEMS: Mostly as above. Denies any dysuria, frequency, or hematuria. She complained of nausea and vomiting. Denies any hemoptysis or hematochezia. Denies any bright red blood per rectum. Denies any loss of consciousness. Denies any double vision. PHYSICAL EXAMINATION: VITAL SIGNS: On admission from the ER, temperature is 97.3 degrees, pulse of 84, respirations 16, and blood pressure 144/85. GENERAL: The patient is awake and responsive, no acute distress. HEAD AND NECK: Pupils are reactive to light. Extraocular movements intact. Neck was supple. No JVD. LUNGS: Good air entry. No wheezes or rales. HEART: Reveals S1 and S2. Distant heart sounds. No murmur or gallops. ABDOMEN: Soft, nondistended, and nontender. Morbidly obese. EXTREMITIES: No cyanosis, clubbing, or edema. NEUROLOGIC: Cranial nerves II through XII grossly intact. Motor is 5/5 in all extremities. Gait is intact. RECTAL: Refused and deferred. GENITOURINARY: Refused and deferred. PSYCHIATRIC: Mood and affect is intact. LABORATORY AND DIAGNOSTIC DATA: On admission, sodium 137, potassium 4.1, chloride 103, bicarbonate 28, BUN 31, creatinine 1.6, GFR is 39, glucose is 410, and calcium is 9.2. AST of 31, total bilirubin of 0.2, ALT of 27, and alkaline phosphatase 83. LDH is 328. Lipase is 434. TSH is 6.382. PT of 9.6, INR is 0.9, and PTT of 26. Urinalysis +3 protein, +4 glucose, +1 blood. ASSESSMENT: 1. Abdominal pain, nausea, and vomiting possibly due to the versus pancreatitis. 2. Uncontrolled diabetes type 2. 3. History of cerebrovascular accident with residual defect. 4. Coronary artery disease with prior history of myocardial infarction. 5. Chronic kidney disease. 6. Seizure disorder. 7. Gastroesophageal reflux disease. 8. Hypertension. PLAN: 1. Admit the patient to medical floor. 2. We will follow up with Dr. Quintana for Gastroenterology consultation as well as Dr. Cummings, Pulmonary Critical Care. 3. We will keep the patient on a clear liquid diet as tolerated. 4. IV hydration. 5. Code status is Full Code. 6. DVT prophylaxis. 7. Heparin subcutaneous. 8. Accu-Chek with sliding scale and KUB. Emanuel Kc M.D. DR: Dat JOB#: [id number] CC:
--- NOTE | 2018-08-30 23:37 | NUR ---
NURSE NOTES: Received patient awake in bed, no s/s of acute distress, no c/o pain at this time. NPO status at midnight noted for possible CT abd in the morning. Will monitor blood glucose closely.
[2018-08-31] VITALS: BP 134/72
[2018-08-31] MEDS: Albuterol/Ipratropium 3ml neb HHN PRN ×2 (00:06→05:42)
[2018-08-31] MEDS: Morphine Sulfate 4mg/ml Inj (IV USE ONLY) IVP PRN ×2 (02:16→21:37)
[2018-08-31] MEDS ORDERED: Promethazine/Codeine 5ml UD ORAL PRN (03:15)
[2018-08-31 04:00] VITALS: BP 145/89
[2018-08-31] MEDS: NovoLOG Insulin Flexpen SUBQ SCH ×4 (05:55→21:00)
--- NOTE | 2018-08-31 07:06 | General Progress Note ---
Assessment/Plan Assessment/Plan: (1) Diabetes mellitus (2) Nausea, vomiting, and diarrhea (3) Pancreatitis (4) History of CVA with residual deficit (5) Uncontrolled diabetes mellitus Plan At this time there is no reported nausea vomiting. Zofran as needed, Reglan for persistent vomiting. Observe for renal insufficiency. consider EGD and colonoscopy for Sunday Obtain abdominal pelvis CT to evaluate abdominal pain anemia work up>>> no iron def PPI Diabetes management Advance diet as tolerated Collect C. difficile to rule out infectious colitis electrolyte correction Subjective ROS Limited/Unobtainable: Yes Allergies: Coded Allergies: No Known Allergies (Unverified , 11/16/11) Objective Last 24 Hour Vital Signs Date Time Temp Pulse Resp B/P (MAP) Pulse Ox O2 Delivery O2 Flow Rate FiO2 08/31/18 06:28 72 16 96 Room Air 21 08/31/18 05:51 68 20 100 Room Air 21 08/31/18 05:42 57 16 98 Room Air 21 08/31/18 04:00 97.9 65 19 145/89 (107) 95 08/31/18 02:46 98.3 08/31/18 00:16 82 20 100 Room Air 21 08/31/18 00:06 52 16 98 Room Air 21 08/31/18 00:00 98.3 73 20 134/72 (92) 95 08/30/18 21:41 Room Air 08/30/18 20:22 77 141/75 08/30/18 20:00 76 18 95 Room Air 21 08/30/18 20:00 97.2 71 20 141/83 (102) 95 08/30/18 16:00 96.9 77 20 141/75 (97) 95 08/30/18 12:00 97.4 74 20 140/90 (107) 97 08/30/18 09:56 80 134/95 08/30/18 09:00 Room Air 08/30/18 08:00 96.2 80 19 134/95 (108) 98 Intake and Output 08/30/18 08/31/18 18:59 06:59 Intake Total 720 ml Balance 720 ml Intake Oral 720 ml # Voids 3 2 Laboratory Tests 08/30/18 15:15: Prothrombin Time 9.6, Prothromb Time International Ratio 0.9, Activated Partial Thromboplast Time 26, Uric Acid 6.5, Total Creatine Kinase 100, Vitamin B12 Level 500, Folate 16.7 08/31/18 05:15: White Blood Count [Pending], Red Blood Count [Pending], Hemoglobin [Pending], Hematocrit [Pending], Mean Corpuscular Volume [Pending], Mean Corpuscular Hemoglobin [Pending], Mean Corpuscular Hemoglobin Concent [Pending], Red Cell Distribution Width [Pending], Platelet Count [Pending], Mean Platelet Volume [ Pending], Neutrophils (%) (Auto) [Pending], Lymphocytes (%) (Auto) [Pending], Monocytes (%) (Auto) [Pending], Eosinophils (%) (Auto) [Pending], Basophils (%) (Auto) [Pending], Sodium Level [Pending], Potassium Level [Pending], Chloride Level [Pending], Carbon Dioxide Level [Pending], Blood Urea Nitrogen [Pending], Creatinine [Pending], Estimat Glomerular Filtration Rate [Pending], Glucose Level [Pending], Calcium Level [Pending], Phosphorus Level [Pending], Magnesium Level [Pending] Height (Feet): 5 Height (Inches): 6.00 Weight (Pounds): 194 General Appearance: alert EENT: normal ENT inspection Neck: supple Cardiovascular: normal rate Respiratory/Chest: lungs clear Abdomen: normal bowel sounds, non tender, soft Extremities: non-tender Lucien Quintana MD Aug 31, 2018 07:06
[2018-08-31 07:32] LABS: ANION GAP 7 mmol/L (5-15); BLOOD UREA NITROGEN 27 mg/dL (7-18); CALCIUM 8.8 MG/DL (8.5-10.1); CARBON DIOXIDE 28 MMOL/L (21-32); CHLORIDE 105 MMOL/L (98-107); CREATININE 1.4 MG/DL (0.55-1.30); POTASSIUM 4.3 MMOL/L (3.5-5.1); SODIUM 140 MMOL/L (136-145)
--- NOTE | 2018-08-31 07:32 | Pulmonology Progress Note ---
Assessment/Plan Problems: (1) Nausea, vomiting, and diarrhea (2) Uncontrolled diabetes mellitus (3) COPD (chronic obstructive pulmonary disease) (4) History of CVA with residual deficit (5) History of seizure Assessment/Plan improving eating well GI consult appreciated sliding scale diabetic diet Subjective ROS Limited/Unobtainable: No Constitutional: Reports: no symptoms HEENT: Repors: no symptoms Respiratory: Reports: no symptoms Allergies: Coded Allergies: No Known Allergies (Unverified , 11/16/11) Objective Last 24 Hour Vital Signs Date Time Temp Pulse Resp B/P (MAP) Pulse Ox O2 Delivery O2 Flow Rate FiO2 08/31/18 06:28 72 16 96 Room Air 21 08/31/18 05:51 68 20 100 Room Air 21 08/31/18 05:42 57 16 98 Room Air 08/31/18 04:00 97.9 65 19 145/89 (107) 95 08/31/18 02:46 98.3 08/31/18 00:16 82 20 100 Room Air 08/31/18 00:06 52 16 98 Room Air 21 08/31/18 00:00 98.3 73 20 134/72 (92) 95 08/30/18 21:41 Room Air 08/30/18 20:22 77 141/75 08/30/18 20:00 76 18 95 Room Air 21 08/30/18 20:00 97.2 71 20 141/83 (102) 95 08/30/18 16:00 96.9 77 20 141/75 (97) 95 08/30/18 12:00 97.4 74 20 140/90 (107) 97 08/30/18 09:56 80 134/95 08/30/18 09:00 Room Air 08/30/18 08:00 96.2 80 19 134/95 (108) 98 Intake and Output 08/30/18 08/31/18 18:59 06:59 Intake Total 720 ml Balance 720 ml Intake Oral 720 ml # Voids 3 2 General Appearance: WD/WN HEENT: normocephalic, atraumatic Respiratory/Chest: chest wall non-tender, lungs clear Breasts: no masses Cardiovascular: normal rate Abdomen: non distended, no scars Extremities: no cyanosis, no clubbing Skin: no rash Laboratory Tests 08/30/18 15:15: Prothrombin Time 9.6, Prothromb Time International Ratio 0.9, Activated Partial Thromboplast Time 26, Uric Acid 6.5, Total Creatine Kinase 100, Vitamin B12 Level 500, Folate 16.7 08/31/18 05:15: White Blood Count [Pending], Red Blood Count [Pending], Hemoglobin [Pending], Hematocrit [Pending], Mean Corpuscular Volume [Pending], Mean Corpuscular Hemoglobin [Pending], Mean Corpuscular Hemoglobin Concent [Pending], Red Cell Distribution Width [Pending], Platelet Count [Pending], Mean Platelet Volume [ Pending], Neutrophils (%) (Auto) [Pending], Lymphocytes (%) (Auto) [Pending], Monocytes (%) (Auto) [Pending], Eosinophils (%) (Auto) [Pending], Basophils (%) (Auto) [Pending], Sodium Level [Pending], Potassium Level [Pending], Chloride Level [Pending], Carbon Dioxide Level [Pending], Blood Urea Nitrogen [Pending], Creatinine [Pending], Estimat Glomerular Filtration Rate [Pending], Glucose Level [Pending], Calcium Level [Pending], Phosphorus Level [Pending], Magnesium Level [Pending] Current Medications Medications (Trade) Dose Ordered Sig/Cassie Route PRN Reason Start Time Stop Time Status Last Admin Dose Admin Acetaminophen (Tylenol) 650 mg Q4H PRN ORAL T>100.5 08/29/18 19:45 09/28/18 19:44 Albuterol/ Ipratropium (Albuterol/ Ipratropium) 3 ml Q4H PRN HHN Shortness of Breath 08/29/18 19:45 09/03/18 19:44 08/31/18 05:42 Carvedilol (Coreg) 6.25 mg Q12HR ORAL 08/29/18 21:00 09/28/18 20:59 08/30/18 20:22 Clonidine HCl (Catapres Tab) 0.1 mg Q4H PRN ORAL sbp more than 160 08/29/18 19:45 09/28/18 19:44 Dextrose (Dextrose 50%) 25 ml Q30M PRN IV Hypoglycemia 08/29/18 20:00 09/28/18 19:54 Dextrose (Dextrose 50%) 50 ml Q30M PRN IV hypoglycemia 08/29/18 20:00 09/28/18 19:59 Diatrizoate Meglum/ Diatrizoate Sod (Gastrografin) 60 ml NOW PRN RECTAL Radiology Procedure 08/30/18 13:30 09/01/18 13:21 Heparin Sodium (Porcine) (Heparin 5000 units/ml) 5,000 units EVERY 12 HOURS SUBQ 08/29/18 21:00 09/28/18 20:59 Insulin Aspart (NovoLOG) BEFORE MEALS AND HS SUBQ 08/29/18 21:30 09/28/18 21:29 08/31/18 05:55 Iopamidol (Isovue-300 100ml) 100 ml NOW PRN INJ Radiology Procedure 08/30/18 13:30 09/01/18 23:59 Metoclopramide HCl (Reglan) 5 mg Q6H PRN ORAL Nausea & Vomiting 08/30/18 13:30 09/29/18 13:29 Morphine Sulfate (Morphine Sulfate) 4 mg Q4H PRN IVP For Pain 08/29/18 23:00 09/05/18 22:59 08/31/18 02:16 Nitroglycerin (Ntg) 0.4 mg Q5MIN X 3 DOSES PRN SL Prn Chest Pain 08/29/18 20:00 09/28/18 19:59 08/30/18 05:03 Ondansetron HCl (Zofran) 4 mg Q6H PRN IVP Nausea & Vomiting 08/29/18 19:45 09/28/18 19:44 08/30/18 17:33 Polyethylene Glycol (Miralax) 17 gm HSPRN PRN ORAL Constipation 08/29/18 21:00 09/28/18 20:59 Promethazine HCl/ Codeine (Phenergan with Codeine) 5 ml Q6H PRN ORAL For Cough 08/31/18 03:15 09/30/18 03:14 Sodium Chloride 1,000 ml @ 100 mls/hr Q10H IVLG 08/29/18 21:00 09/28/18 20:59 08/30/18 17:34 Temazepam (Restoril) 15 mg HSPRN PRN ORAL Insomnia 08/29/18 21:00 09/05/18 20:59 Dave Cummings MD Aug 31, 2018 07:32
--- NOTE | 2018-08-31 07:41 | NUR ---
NURSE NOTES: received report from RANDI Licea. patient in w/c. alert. verbally responsive. no respiratory distress on room air. no pain at this time. NPO for abd/pelvis ct scan. IV GENE 24g running ns 100/hr. bed in the lowest position. call light within reach. alarm on. will provide plan of care
--- NOTE | 2018-08-31 07:42 | NUR ---
HAND-OFF: Report given to wallace gonzalez.
[2018-08-31 08:00] VITALS: BP 138/90
[2018-08-31 08:07] LABS: BASOPHILS % (AUTO) 0.7 % (0.0-2.0); EOSINOPHILS % (AUTO) 3.5 % (0.0-3.0); HEMATOCRIT 36.9 % (37.0-47.0); HEMOGLOBIN 11.3 G/DL (12.0-16.0); LYMPHOCYTES % (AUTO) 37.1 % (20.0-45.0); MEAN CORPUSCULAR VOLUME 86 FL (80-99); MONOCYTES % (AUTO) 7.8 % (1.0-10.0); PLATELET COUNT 152 K/UL (150-450); RED BLOOD COUNT 4.27 M/UL (4.20-5.40); RED CELL DISTRIBUTION WIDTH 12.6 % (11.6-14.8); WHITE BLOOD COUNT 4.8 K/UL (4.8-10.8)
--- NOTE | 2018-08-31 09:03 | NUR ---
NURSE NOTES: patient has a schedule of CT abd today. BUN 27, CR 1.[address] paul and received order hold CT today. order noted and carried out.
[2018-08-31] MEDS: Carvedilol 6.25mg Tab ORAL SCH ×2 (09:39→21:00)
[2018-08-31] MEDS: Heparin 5000 units/ml inj SUBQ SCH ×2 (09:40→21:43)
--- NOTE | 2018-08-31 10:41 | NUR ---
CASE MANAGEMENT: REVIEW 08/31/2018 SI:UNCONTROLLED DM. DEHYDRATION. T 97 HR 72 RR 16 B/P 138/90 SATS 99% ON RA BUN 27 CR 1.4 GLU 246 IS: IVF @ 100 ml/HR INSULIN ASPART SUBQ AC/HS COREG PO Q12H MED/SURG STATUS PLAN OF CARE: US RENAL GLYCEMIC CONTROL AND MONITORING
[2018-08-31 12:00] VITALS: BP 148/90
[2018-08-31] MEDS ORDERED: Levemir Flexpen SUBQ SCH (12:00)
--- NOTE | 2018-08-31 12:03 | Diagnostic Imaging Report ---
Indication: Abdominal pain Comparison: None Single view of the abdomen obtained Findings: Bowel gas pattern is nonspecific. No mass, ectopic calcifications, or abnormal gas collections are identified. Surgical clips in the right upper quadrant of abdomen demonstrated. Bones are osteopenic. Impression: No acute findings
[2018-08-31] MEDS: Nateglinide 60mg tab ORAL SCH ×2 (12:33→17:16)
[2018-08-31 14:11] LABS: APPEARANCE,URINE SLIGHTLY CLOUDY; BILIRUBIN, URINE NEGATIVE (NEGATIVE); COLOR,URINE PALE YELLOW; GLUCOSE, URINE (UA) NEGATIVE (NEGATIVE); KETONES,URINE 1+ (NEGATIVE); LEUKOCYTE ESTERASE ,URINE 2+ (NEGATIVE); NITRITE,URINE NEGATIVE (NEGATIVE); PH,URINE 6 (4.5-8.0); PROTEIN,URINE 4+ (NEGATIVE); UROBILINOGEN,URINE NORMAL MG/DL (0.0-1.0)
--- NOTE | 2018-08-31 14:54 | Internal Med Progress Note ---
Subjective Physician Name Emanuel Kc Attending Physician Emanuel Kc MD Current Medications Medications (Trade) Dose Ordered Sig/Cassie Route PRN Reason Start Time Stop Time Status Last Admin Dose Admin Acetaminophen (Tylenol) 650 mg Q4H PRN ORAL T>100.5 08/29/18 19:45 09/28/18 19:44 Albuterol/ Ipratropium (Albuterol/ Ipratropium) 3 ml Q4H PRN HHN Shortness of Breath 08/29/18 19:45 09/03/18 19:44 08/31/18 05:42 Carvedilol (Coreg) 6.25 mg Q12HR ORAL 08/29/18 21:00 09/28/18 20:59 08/31/18 09:39 Clonidine HCl (Catapres Tab) 0.1 mg Q4H PRN ORAL sbp more than 160 08/29/18 19:45 09/28/18 19:44 Dextrose (Dextrose 50%) 25 ml Q30M PRN IV Hypoglycemia 08/31/18 11:00 09/30/18 10:59 Dextrose (Dextrose 50%) 50 ml Q30M PRN IV Hypoglycemia 08/31/18 11:00 09/30/18 10:59 Diatrizoate Meglum/ Diatrizoate Sod (Gastrografin) 60 ml NOW PRN RECTAL Radiology Procedure 08/30/18 13:30 09/01/18 13:21 Heparin Sodium (Porcine) (Heparin 5000 units/ml) 5,000 units EVERY 12 HOURS SUBQ 08/29/18 21:00 09/28/18 20:59 08/31/18 09:40 Insulin Aspart (NovoLOG) BEFORE MEALS AND HS SUBQ 08/29/18 21:30 09/28/18 21:29 08/31/18 12:36 Insulin Detemir (Levemir) 10 units DAILY SUBQ 08/31/18 12:00 09/30/18 11:59 08/31/18 12:36 Iopamidol (Isovue-300 100ml) 100 ml NOW PRN INJ Radiology Procedure 08/30/18 13:30 09/01/18 23:59 Metoclopramide HCl (Reglan) 5 mg Q6H PRN ORAL Nausea & Vomiting 08/30/18 13:30 09/29/18 13:29 Morphine Sulfate (Morphine Sulfate) 4 mg Q4H PRN IVP For Pain 08/29/18 23:00 09/05/18 22:59 08/31/18 02:16 Nateglinide (Starlix) 60 mg TIAC ORAL 08/31/18 11:30 09/30/18 11:29 08/31/18 12:33 Nitroglycerin (Ntg) 0.4 mg Q5MIN X 3 DOSES PRN SL Prn Chest Pain 08/29/18 20:00 09/28/18 19:59 08/30/18 05:03 Ondansetron HCl (Zofran) 4 mg Q6H PRN IVP Nausea & Vomiting 08/29/18 19:45 09/28/18 19:44 08/30/18 17:33 Polyethylene Glycol (Miralax) 17 gm HSPRN PRN ORAL Constipation 08/29/18 21:00 09/28/18 20:59 Promethazine HCl/ Codeine (Phenergan with Codeine) 5 ml Q6H PRN ORAL For Cough 08/31/18 03:15 09/30/18 03:14 Sodium Chloride 1,000 ml @ 100 mls/hr Q10H IVLG 08/29/18 21:00 09/28/18 20:59 08/31/18 13:59 Temazepam (Restoril) 15 mg HSPRN PRN ORAL Insomnia 08/29/18 21:00 09/05/18 20:59 Allergies: Coded Allergies: No Known Allergies (Unverified , 11/16/11) Subjective Awake, alert, responsive, denies any nausea or vomiting, feeling better, eating more. Objective Last Vital Signs Date Time Temp Pulse Resp B/P (MAP) Pulse Ox O2 Delivery O2 Flow Rate FiO2 08/31/18 12:00 97.0 72 16 148/90 (109) 99 08/31/18 09:00 Room Air 08/31/18 06:28 21 08/30/18 04:38 2.0 Laboratory Tests Test 08/30/18 15:15 08/31/18 05:15 Prothrombin Time 9.6 SEC (9.30-11.50) Prothromb Time International Ratio 0.9 (0.9-1.1) Activated Partial Thromboplast Time 26 SEC (23-33) Uric Acid 6.5 MG/DL (2.6-7.2) Total Creatine Kinase 100 U/L (26-308) Vitamin B12 Level 500 PG/ML (193-986) Folate 16.7 NG/ML (8.6-58.9) White Blood Count 4.8 K/UL (4.8-10.8) Red Blood Count 4.27 M/UL (4.20-5.40) Hemoglobin 11.3 G/DL (12.0-16.0) L Hematocrit 36.9 % (37.0-47.0) L Mean Corpuscular Volume 86 FL (80-99) Mean Corpuscular Hemoglobin 26.5 PG (27.0-31.0) L Mean Corpuscular Hemoglobin Concent 30.6 G/DL (32.0-36.0) L Red Cell Distribution Width 12.6 % (11.6-14.8) Platelet Count 152 K/UL (150-450) Mean Platelet Volume 7.3 FL (6.5-10.1) Neutrophils (%) (Auto) 51.0 % (45.0-75.0) Lymphocytes (%) (Auto) 37.1 % (20.0-45.0) Monocytes (%) (Auto) 7.8 % (1.0-10.0) Eosinophils (%) (Auto) 3.5 % (0.0-3.0) H Basophils (%) (Auto) 0.7 % (0.0-2.0) Sodium Level 140 MMOL/L (136-145) Potassium Level 4.3 MMOL/L (3.5-5.1) Chloride Level 105 MMOL/L (98-107) Carbon Dioxide Level 28 MMOL/L (21-32) Anion Gap 7 mmol/L (5-15) Blood Urea Nitrogen 27 mg/dL (7-18) H Creatinine 1.4 MG/DL (0.55-1.30) H Estimat Glomerular Filtration Rate 45.6 mL/min (>60) Glucose Level 246 MG/DL (74-106) H Calcium Level 8.8 MG/DL (8.5-10.1) Phosphorus Level 4.0 MG/DL (2.5-4.9) Magnesium Level 1.8 MG/DL (1.8-2.4) Thyroid Stimulating Hormone (TSH) 3.596 uiU/mL (0.358-3.740) Free Thyroxine 1.17 NG/DL (0.76-1.46) Intake and Output 08/30/18 08/31/18 19:00 07:00 Intake Total 720 ml Balance 720 ml Intake Oral 720 ml # Voids 3 2 Objective GENERAL: Awake and responsive, no acute distress. HEAD AND NECK: Pupils are reactive to light. Extraocular movements intact. Neck was supple. No JVD. LUNGS: Good air entry. No wheezes or rales. HEART: Reveals S1 and S2. Distant heart sounds. No murmur or gallops. ABDOMEN: Soft, nondistended, and nontender. Morbidly obese. EXTREMITIES: No cyanosis, clubbing, or edema. NEUROLOGIC: Cranial nerves II through XII grossly intact. Motor is 5/5 in upper extremities and lower extremities weaker than upper extremities. RECTAL: Refused and deferred. GENITOURINARY: Refused and deferred. PSYCHIATRIC: Mood and affect is intact. Assessment/Plan Assessment/Plan ASSESSMENT: 1. Abdominal pain, nausea, and vomiting possibly pancreatitis. 2. Uncontrolled diabetes type 2. 3. History of cerebrovascular accident with residual defect. 4. Coronary artery disease with prior history of myocardial infarction. 5. Chronic kidney disease. 6. Seizure disorder. 7. Gastroesophageal reflux disease. 8. Hypertension. PLAN: 1. In medical floor. 2. We will follow up with Dr. Quintaan for Gastroenterology consultation as well as Dr. Cummings, Pulmonary Critical Care. 3. Advance as tolerated. 4. IV hydration. 5. Code status: Full Code. 6. DVT prophylaxis. 7. Heparin subcutaneous. 8. Accu-Chek with sliding scale. Giselle Costa Payam MD Aug 31, 2018 14:54
[2018-08-31 16:00] VITALS: BP 159/97
--- NOTE | 2018-08-31 19:15 | Consultation ---
DATE OF CONSULTATION: 08/31/2018 ENDOCRINOLOGY CONSULTATION CONSULTING PHYSICIAN: Randolph Meléndez M.D. REFERRING PHYSICIAN: Emanuel Kc M.D. REASON FOR CONSULTATION: Diabetes management. HISTORY OF PRESENT ILLNESS: This is a 67-year-old lady with morbid obesity, history of type 2 diabetes, on metformin and glipizide as an outpatient, as well as hypertension, coronary artery disease, history of myocardial infarction in 2015, asthma, emphysema, chronic obstructive pulmonary disease, and seizure disorder. The patient presented to the hospital with intractable nausea, vomiting, and diarrhea. I was called to manage diabetes. Lipase was noted to be of 424 on admission. PAST MEDICAL HISTORY: 1. Type 2 diabetes. 2. Hypertension. 3. Coronary artery disease. 4. Asthma. 5. Emphysema, chronic obstructive pulmonary disease. 6. Stroke. 7. Seizure disorder. PAST SURGICAL HISTORY: 1. . 2. Cholecystectomy. 3. Appendectomy. 4. Coronary artery bypass grafts. MEDICATIONS: Reviewed and reconciled. ALLERGIES TO MEDICATIONS: None. SOCIAL HISTORY: History of substance abuse. No alcohol. Lives in the [facility]. FAMILY HISTORY: Noncontributory. REVIEW OF SYSTEMS: As per history of present illness. PHYSICAL EXAMINATION: GENERAL: She is awake. VITAL SIGNS: Blood pressure is 138/90, pulse is 72, temp 97, and respiratory rate of 16. HEENT: Pupils are reactive to light. Sclerae are anicteric. NECK: No jugular venous distention. HEART: Regular. LUNGS: Clear. ABDOMEN: Positive bowel sounds. EXTREMITIES: Positive for edema. LABORATORY DATA: Sodium 140, potassium 4.3, chloride 102, bicarbonate 24, BUN 27, creatinine 1.4, and glucose 246. TSH of 6.3. DIAGNOSES: 1. Abdominal pain with nausea and vomiting. 2. Chronic kidney disease. 3. Elevated lipase. 4. Elevated TSH. 5. Diabetes, out of control. PLAN: 1. Continue to hold off on glipizide and metformin. 2. Start Levemir 10 units daily, first dose this morning. 3. Start Starlix 60 mg before each. 4. NovoLog sliding scale insulin at bedtime. 5. Repeat thyroid function. I will follow the patient during the hospital stay. Thank you, Dr. Kc, for the courtesy of this consultation. Randolph Meléndez M.D. DR: ELVA JOB#: [id number] CC:
--- NOTE | 2018-08-31 19:30 | NUR ---
HAND-OFF: Report given to RANDI Castro.
[2018-08-31 20:00] VITALS: BP 154/85
--- NOTE | 2018-08-31 21:00 | NUR ---
NURSE NOTES: PATIENT IN BED, AWAKE, WATCHING TV. ON RA, NO SOB, NO ACUTE DISTRESS. NOTED IV ON R UPPER ARM OUT FROM THE SITE, LEAKING IV FLUIDS OVER GOWN. REINSERTED 24G ON R FOREARM, INTACT, PATENT, RUNNING FLUIDS. BED IN LOWEST POSITION, LOCKED, ALARMS ON. CALL LIGHT IN REACH.
[2018-09-01] VITALS: BP 142/69
[2018-09-01] MEDS: Morphine Sulfate 4mg/ml Inj (IV USE ONLY) IVP PRN ×3 (01:59→20:39)
[2018-09-01 04:00] VITALS: BP 155/77
--- NOTE | 2018-09-01 05:17 | NUR ---
NURSE NOTES: RECEIVED PHONE CALL FROM [facility] SAYING THAT THEY WILL CANCEL THE C-DIFF ORDER AND DISCARD STOOL SPECIMEN D/T STOOL BEING TOO HARD FOR TEST. PATIENT DOES NOT REQUIRE ANOTHER SPECIMEN.
[2018-09-01] MEDS: Nateglinide 60mg tab ORAL SCH ×3 (06:08→17:28)
[2018-09-01] MEDS: NovoLOG Insulin Flexpen SUBQ SCH ×4 (06:09→20:51)
--- NOTE | 2018-09-01 06:39 | General Progress Note ---
Assessment/Plan Assessment/Plan: (1) Diabetes mellitus (2) Nausea, vomiting, and diarrhea (3) Pancreatitis (4) History of CVA with residual deficit (5) Uncontrolled diabetes mellitus (6) Elevated CEA Plan Zofran as needed, Reglan for persistent vomiting. Observe for renal insufficiency. plan EGD and colonoscopy for Sunday Obtain abdominal pelvis CT to evaluate abdominal pain anemia work up>>> no iron def PPI Diabetes management Collect C. difficile to rule out infectious colitis electrolyte correction Subjective ROS Limited/Unobtainable: Yes Allergies: Coded Allergies: No Known Allergies (Unverified , 11/16/11) Objective Last 24 Hour Vital Signs Date Time Temp Pulse Resp B/P (MAP) Pulse Ox O2 Delivery O2 Flow Rate FiO2 09/01/18 04:00 98.4 71 20 155/77 (103) 96 09/01/18 00:00 98.0 79 20 142/69 (93) 98 08/31/18 21:00 Room Air 08/31/18 21:00 73 154/85 08/31/18 20:00 98.5 77 20 154/85 (108) 99 08/31/18 20:00 73 18 98 Room Air 21 08/31/18 16:00 97.7 79 20 159/97 (117) 100 08/31/18 12:00 97.0 72 16 148/90 (109) 99 08/31/18 09:39 72 138/90 08/31/18 09:00 Room Air 08/31/18 08:00 97.0 72 16 138/90 (106) 99 Intake and Output 08/31/18 09/01/18 19:00 07:00 Intake Total 1240 ml 240 ml Balance 1240 ml 240 ml Intake Oral 240 ml 240 ml IV Total 1000 ml # Voids 3 4 # Bowel Movements 1 1 Height (Feet): 5 Height (Inches): 6.00 Weight (Pounds): 194 General Appearance: alert EENT: normal ENT inspection Neck: supple Cardiovascular: normal rate Respiratory/Chest: lungs clear Abdomen: non tender, soft, hypoactive bowel sounds Extremities: non-tender Lucien Quintana MD Sep 01, 2018 06:39
--- NOTE | 2018-09-01 07:21 | General Progress Note ---
Assessment/Plan Problem List: (1) COPD (chronic obstructive pulmonary disease) ICD Codes: J44.9 - Chronic obstructive pulmonary disease, unspecified SNOMED: 95898598 (2) Nausea, vomiting, and diarrhea ICD Codes: R11.2 - Nausea with vomiting, unspecified; R19.7 - Diarrhea, unspecified SNOMED: 2902630 (3) History of seizure ICD Codes: Z87.898 - Personal history of other specified conditions SNOMED: 630076313 (4) Uncontrolled diabetes mellitus ICD Codes: E11.65 - Type 2 diabetes mellitus with hyperglycemia SNOMED: 78143408, 421058731 Assessment/Plan: increase Levemir to 18 units qam increase Starlix to 120 mg ac tid continue NISS ac / hs Subjective Allergies: Coded Allergies: No Known Allergies (Unverified , 11/16/11) All Systems: reviewed and negative except above Subjective events noted glucose on higher side Item Value Date Time Bedside Blood Glucose 174 mg/dl H 08/31/18 2100 Bedside Blood Glucose 224 mg/dl H 08/31/18 1718 Bedside Blood Glucose 193 mg/dl H 08/31/18 1236 Bedside Blood Glucose 279 mg/dl H 08/31/18 0555 Objective Last 24 Hour Vital Signs Date Time Temp Pulse Resp B/P (MAP) Pulse Ox O2 Delivery O2 Flow Rate FiO2 09/01/18 04:00 98.4 71 20 155/77 (103) 96 09/01/18 00:00 98.0 79 20 142/69 (93) 98 08/31/18 21:00 Room Air 08/31/18 21:00 73 154/85 08/31/18 20:00 98.5 77 20 154/85 (108) 99 08/31/18 20:00 73 18 98 Room Air 21 08/31/18 16:00 97.7 79 20 159/97 (117) 100 08/31/18 12:00 97.0 72 16 148/90 (109) 99 08/31/18 09:39 72 138/90 08/31/18 09:00 Room Air 08/31/18 08:00 97.0 72 16 138/90 (106) 99 Intake and Output 08/31/18 09/01/18 19:00 07:00 Intake Total 1240 ml 240 ml Balance 1240 ml 240 ml Intake Oral 240 ml 240 ml IV Total 1000 ml # Voids 3 4 # Bowel Movements 1 1 Height (Feet): 5 Height (Inches): 6.00 Weight (Pounds): 194 General Appearance: no apparent distress Neck: normal alignment Cardiovascular: normal rate Respiratory/Chest: lungs clear Abdomen: normal bowel sounds Objective Current Medications Medications (Trade) Dose Ordered Sig/Cassie Route PRN Reason Start Time Stop Time Status Last Admin Dose Admin Acetaminophen (Tylenol) 650 mg Q4H PRN ORAL T>100.5 08/29/18 19:45 09/28/18 19:44 Albuterol/ Ipratropium (Albuterol/ Ipratropium) 3 ml Q4H PRN HHN Shortness of Breath 08/29/18 19:45 09/03/18 19:44 08/31/18 05:42 Bisacodyl (Dulcolax) 10 mg ONCE ORAL 09/01/18 16:00 09/01/18 17:00 Carvedilol (Coreg) 6.25 mg Q12HR ORAL 08/29/18 21:00 09/28/18 20:59 08/31/18 21:00 Clonidine HCl (Catapres Tab) 0.1 mg Q4H PRN ORAL sbp more than 160 08/29/18 19:45 09/28/18 19:44 Dextrose (Dextrose 50%) 25 ml Q30M PRN IV Hypoglycemia 08/31/18 11:00 09/30/18 10:59 Dextrose (Dextrose 50%) 50 ml Q30M PRN IV Hypoglycemia 08/31/18 11:00 09/30/18 10:59 Dextrose/ Electrolytes 1,000 ml @ 75 mls/hr [id number] IV 09/01/18 16:00 10/01/18 15:59 Diatrizoate Meglum/ Diatrizoate Sod (Gastrografin) 60 ml NOW PRN RECTAL Radiology Procedure 08/30/18 13:30 09/01/18 13:21 Heparin Sodium (Porcine) (Heparin 5000 units/ml) 5,000 units EVERY 12 HOURS SUBQ 08/29/18 21:00 09/28/18 20:59 08/31/18 21:43 Insulin Aspart (NovoLOG) BEFORE MEALS AND HS SUBQ 08/29/18 21:30 09/28/18 21:29 09/01/18 06:09 Insulin Detemir (Levemir) 10 units DAILY SUBQ 08/31/18 12:00 09/30/18 11:59 08/31/18 12:36 Iopamidol (Isovue-300 100ml) 100 ml NOW PRN INJ Radiology Procedure 08/30/18 13:30 09/01/18 23:59 Metoclopramide HCl (Reglan) 5 mg Q6H PRN ORAL Nausea & Vomiting 08/30/18 13:30 09/29/18 13:29 Morphine Sulfate (Morphine Sulfate) 4 mg Q4H PRN IVP For Pain 08/29/18 23:00 09/05/18 22:59 09/01/18 06:31 Nateglinide (Starlix) 60 mg TIAC ORAL 08/31/18 11:30 09/30/18 11:29 09/01/18 06:08 Nitroglycerin (Ntg) 0.4 mg Q5MIN X 3 DOSES PRN SL Prn Chest Pain 08/29/18 20:00 09/28/18 19:59 08/30/18 05:03 Ondansetron HCl (Zofran) 4 mg Q6H PRN IVP Nausea & Vomiting 08/29/18 19:45 09/28/18 19:44 08/30/18 17:33 Polyethylene Glycol (Miralax) 17 gm HSPRN PRN ORAL Constipation 08/29/18 21:00 09/28/18 20:59 Polyethylene Glycol (Miralax) 238 gm ONCE ORAL 09/01/18 16:00 09/01/18 23:59 Promethazine HCl/ Codeine (Phenergan with Codeine) 5 ml Q6H PRN ORAL For Cough 08/31/18 03:15 09/30/18 03:14 Sodium Chloride 1,000 ml @ 100 mls/hr Q10H IVLG 08/29/18 21:00 09/01/18 15:59 08/31/18 22:20 Temazepam (Restoril) 15 mg HSPRN PRN ORAL Insomnia 08/29/18 21:00 09/05/18 20:59 08/31/18 23:15 Randolph Meléndez MD Sep 01, 2018 07:21
--- NOTE | 2018-09-01 07:28 | NUR ---
HAND-OFF: Report given to OLIVER BRYAN.
--- NOTE | 2018-09-01 07:55 | NUR ---
NURSE NOTES: Received report from RANDI Castro. Pt in bed, awake, eating breakfast, no complaints of pain, no apparent distress noted, discussed plan of care, bed in lowest position, call light within reach.
[2018-09-01 08:00] VITALS: BP 144/71
[2018-09-01] MEDS ORDERED: Levemir Flexpen SUBQ SCH (09:00)
[2018-09-01] MEDS: Heparin 5000 units/ml inj SUBQ SCH ×2 (09:00→20:37)
[2018-09-01] MEDS: D5 1/2NS w/KCl 20mEq 1,000 ML IV SCH (09:06)
[2018-09-01] MEDS: Carvedilol 6.25mg Tab ORAL SCH ×2 (09:06→20:39)
[2018-09-01 09:45] LABS: BASOPHILS % (AUTO) 1.2 % (0.0-2.0); EOSINOPHILS % (AUTO) 3.6 % (0.0-3.0); HEMATOCRIT 35.2 % (37.0-47.0); HEMOGLOBIN 11.2 G/DL (12.0-16.0); LYMPHOCYTES % (AUTO) 37.3 % (20.0-45.0); MEAN CORPUSCULAR VOLUME 87 FL (80-99); MONOCYTES % (AUTO) 6.7 % (1.0-10.0); NEUTROPHILS % (AUTO) 51.2 % (45.0-75.0); PLATELET COUNT 153 K/UL (150-450); RED BLOOD COUNT 4.06 M/UL (4.20-5.40); RED CELL DISTRIBUTION WIDTH 12.9 % (11.6-14.8); WHITE BLOOD COUNT 5.5 K/UL (4.8-10.8)
[2018-09-01 10:39] LABS: ALANINE AMINOTRANSFERASE 25 U/L (12-78); ALBUMIN 2.3 G/DL (3.4-5.0); ALBUMIN/GLOBULIN RATIO 0.6 (1.0-2.7); ALKALINE PHOSPHATASE 79 U/L (46-116); AMYLASE 63 U/L (25-115); ANION GAP 8 mmol/L (5-15); ASPARTATE AMINO TRANSFERASE 35 U/L (15-37); BILIRUBIN,TOTAL 0.2 MG/DL (0.2-1.0); BLOOD UREA NITROGEN 30 mg/dL (7-18); CALCIUM 8.5 MG/DL (8.5-10.1); CARBON DIOXIDE 26 MMOL/L (21-32); CHLORIDE 107 MMOL/L (98-107); CREATININE 1.4 MG/DL (0.55-1.30); SODIUM 141 MMOL/L (136-145)
[2018-09-01 12:00] VITALS: BP 140/97
[2018-09-01] MEDS: Albuterol/Ipratropium 3ml neb HHN PRN (13:08)
[2018-09-01 16:00] VITALS: BP 142/79
[2018-09-01] MEDS ORDERED: Bisacodyl EC 5mg tab ORAL SCH (16:00)
[2018-09-01] MEDS ORDERED: Polyethylene Glycol 238gm bottle ORAL SCH (16:00)
--- NOTE | 2018-09-01 16:19 | NUR ---
NURSE NOTES: BS 440 at 1611, Rn rechecked BS 472 at [address] Dr. Meléndez, per SS protocol Insulin admin should be 14 units, Dr. Meléndez ordered 20 units to be given. Pt is doing Gatorade with laxative prep at this time. Instructed pt she not to have anymore juices, stop adding sugar to tea.
[2018-09-01] MEDS ORDERED: NovoLOG Insulin Flexpen SUBQ SCH (16:45)
--- NOTE | 2018-09-01 19:13 | NUR ---
HAND-OFF: Report given to RANDI Maier.
--- NOTE | 2018-09-01 19:14 | NUR ---
NURSE NOTES: Pt is awake, AxO x4. In no acute distress, IV 24 G R forearm, intact, patent, fluids running. Bed is locked, in lowest position, Call light within reach, Reinforced that patient call if she needs any assistance, Encouraging her to complete her bowel prep. Will continue to monitor.
[2018-09-01 20:00] VITALS: BP 154/96
--- NOTE | 2018-09-01 21:49 | Internal Med Progress Note ---
Subjective Physician Name Emanuel Kc Attending Physician Emanuel Kc MD Current Medications Medications (Trade) Dose Ordered Sig/Cassie Route PRN Reason Start Time Stop Time Status Last Admin Dose Admin Acetaminophen (Tylenol) 650 mg Q4H PRN ORAL T>100.5 08/29/18 19:45 09/28/18 19:44 Albuterol/ Ipratropium (Albuterol/ Ipratropium) 3 ml Q4H PRN HHN Shortness of Breath 08/29/18 19:45 09/03/18 19:44 09/01/18 13:08 Carvedilol (Coreg) 6.25 mg Q12HR ORAL 08/29/18 21:00 09/28/18 20:59 09/01/18 20:39 Clonidine HCl (Catapres Tab) 0.1 mg Q4H PRN ORAL sbp more than 160 08/29/18 19:45 09/28/18 19:44 Dextrose (Dextrose 50%) 25 ml Q30M PRN IV Hypoglycemia 08/31/18 11:00 09/30/18 10:59 Dextrose (Dextrose 50%) 50 ml Q30M PRN IV Hypoglycemia 08/31/18 11:00 09/30/18 10:59 Dextrose/ Electrolytes 1,000 ml @ 75 mls/hr [id number] IV 09/01/18 16:00 10/01/18 15:59 09/01/18 09:06 Heparin Sodium (Porcine) (Heparin 5000 units/ml) 5,000 units EVERY 12 HOURS SUBQ 08/29/18 21:00 09/28/18 20:59 08/31/18 21:43 Insulin Aspart (NovoLOG) BEFORE MEALS AND HS SUBQ 08/29/18 21:30 09/28/18 21:29 09/01/18 20:51 Insulin Detemir (Levemir) 18 units DAILY SUBQ 09/01/18 09:00 09/30/18 11:59 09/01/18 09:03 Iopamidol (Isovue-300 100ml) 100 ml NOW PRN INJ Radiology Procedure 08/30/18 13:30 09/01/18 23:59 Metoclopramide HCl (Reglan) 5 mg Q6H PRN ORAL Nausea & Vomiting 08/30/18 13:30 09/29/18 13:29 Morphine Sulfate (Morphine Sulfate) 4 mg Q4H PRN IVP For Pain 08/29/18 23:00 09/05/18 22:59 09/01/18 20:39 Nateglinide (Starlix) 120 mg TIAC ORAL 09/01/18 11:30 09/30/18 11:29 09/01/18 17:28 Nitroglycerin (Ntg) 0.4 mg Q5MIN X 3 DOSES PRN SL Prn Chest Pain 08/29/18 20:00 09/28/18 19:59 08/30/18 05:03 Ondansetron HCl (Zofran) 4 mg Q6H PRN IVP Nausea & Vomiting 08/29/18 19:45 09/28/18 19:44 08/30/18 17:33 Polyethylene Glycol (Miralax) 17 gm HSPRN PRN ORAL Constipation 08/29/18 21:00 09/28/18 20:59 Polyethylene Glycol (Miralax) 238 gm ONCE ORAL 09/01/18 16:00 09/01/18 23:59 09/01/18 15:25 Promethazine HCl/ Codeine (Phenergan with Codeine) 5 ml Q6H PRN ORAL For Cough 08/31/18 03:15 09/30/18 03:14 Temazepam (Restoril) 15 mg HSPRN PRN ORAL Insomnia 08/29/18 21:00 09/05/18 20:59 08/31/18 23:15 Allergies: Coded Allergies: No Known Allergies (Unverified , 11/16/11) Subjective Awake, alert, responsive, denies any nausea or vomiting, feeling okay. Objective Last Vital Signs Date Time Temp Pulse Resp B/P (MAP) Pulse Ox O2 Delivery O2 Flow Rate FiO2 09/01/18 20:39 74 142/79 09/01/18 20:14 18 98 Room Air 21 09/01/18 20:00 98.5 08/30/18 04:38 2.0 Laboratory Tests Test 09/01/18 07:50 White Blood Count 5.5 K/UL (4.8-10.8) Red Blood Count 4.06 M/UL (4.20-5.40) L Hemoglobin 11.2 G/DL (12.0-16.0) L Hematocrit 35.2 % (37.0-47.0) L Mean Corpuscular Volume 87 FL (80-99) Mean Corpuscular Hemoglobin 27.5 PG (27.0-31.0) Mean Corpuscular Hemoglobin Concent 31.7 G/DL (32.0-36.0) L Red Cell Distribution Width 12.9 % (11.6-14.8) Platelet Count 153 K/UL (150-450) Mean Platelet Volume 7.8 FL (6.5-10.1) Neutrophils (%) (Auto) 51.2 % (45.0-75.0) Lymphocytes (%) (Auto) 37.3 % (20.0-45.0) Monocytes (%) (Auto) 6.7 % (1.0-10.0) Eosinophils (%) (Auto) 3.6 % (0.0-3.0) H Basophils (%) (Auto) 1.2 % (0.0-2.0) Sodium Level 141 MMOL/L (136-145) Potassium Level 4.0 MMOL/L (3.5-5.1) Chloride Level 107 MMOL/L (98-107) Carbon Dioxide Level 26 MMOL/L (21-32) Anion Gap 8 mmol/L (5-15) Blood Urea Nitrogen 30 mg/dL (7-18) H Creatinine 1.4 MG/DL (0.55-1.30) H Estimat Glomerular Filtration Rate 45.6 mL/min (>60) Glucose Level 92 MG/DL (74-106) # Lactic Acid Level 1.70 mmol/L (0.4-2.0) Calcium Level 8.5 MG/DL (8.5-10.1) Total Bilirubin 0.2 MG/DL (0.2-1.0) Aspartate Amino Transf (AST/SGOT) 35 U/L (15-37) Alanine Aminotransferase (ALT/SGPT) 25 U/L (12-78) Alkaline Phosphatase 79 U/L (46-116) Total Protein 6.3 G/DL (6.4-8.2) L Albumin 2.3 G/DL (3.4-5.0) L Globulin 4.0 g/dL Albumin/Globulin Ratio 0.6 (1.0-2.7) L Amylase Level 63 U/L (25-115) Lipase 109 U/L (73-393) Microbiology Date/Time Source Procedure Growth Status 08/30/18 01:25 Nasal Nares MRSA Culture - Final NO METHICILLIN RESISTANT STAPH AUREUS... Complete 08/30/18 01:25 Rectum VRE Culture - Final NO VANCOMYCIN RESISTANT ENTEROCOCCUS ... Complete Intake and Output 08/31/18 09/01/18 19:00 07:00 Intake Total 1240 ml 240 ml Balance 1240 ml 240 ml Intake Oral 240 ml 240 ml IV Total 1000 ml # Voids 3 4 # Bowel Movements 1 1 Objective GENERAL: Awake and responsive, no acute distress. HEAD AND NECK: Pupils are reactive to light. Extraocular movements intact. Neck was supple. No JVD. LUNGS: Good air entry. No wheezes or rales. HEART: Reveals S1 and S2. Distant heart sounds. No murmur or gallops. ABDOMEN: Soft, nondistended, and nontender. Morbidly obese. EXTREMITIES: No cyanosis, clubbing, or edema. NEUROLOGIC: Cranial nerves II through XII grossly intact. Motor is 5/5 in upper extremities and lower extremities weaker than upper extremities. RECTAL: Refused and deferred. GENITOURINARY: Refused and deferred. PSYCHIATRIC: Mood and affect is intact. Assessment/Plan Assessment/Plan ASSESSMENT: 1. Abdominal pain, nausea, and vomiting possibly pancreatitis. 2. Uncontrolled diabetes type 2. 3. History of cerebrovascular accident with residual defect. 4. Coronary artery disease with prior history of myocardial infarction. 5. Chronic kidney disease. 6. Seizure disorder. 7. Gastroesophageal reflux disease. 8. Hypertension. PLAN: 1. In medical floor. 2. Dr. Quintana for Gastroenterology consultation as well as Dr. Cummings, Pulmonary Critical Care. 3. Advance as tolerated. 4. IV hydration. 5. Code status: Full Code. 6. DVT prophylaxis. 7. Heparin subcutaneous. 8. Accu-Chek with sliding scale 9. For EGD and Colonoscopy in AM.. Giselle Costa Payam MD Sep 01, 2018 21:49
[2018-09-02] VITALS: BP 154/98
[2018-09-02] MEDS: D5 1/2NS w/KCl 20mEq 1,000 ML IV SCH (01:38)
[2018-09-02 04:00] VITALS: BP 149/92
[2018-09-02] MEDS: Nateglinide 60mg tab ORAL SCH (05:53)
[2018-09-02] MEDS: NovoLOG Insulin Flexpen SUBQ SCH (05:54)
--- NOTE | 2018-09-02 05:54 | NUR ---
NURSE NOTES: Pt pulled out her IV. I informed the pt that they will require an IV site for the procedure. Pt said they can get it put in before the procedure but not now. Will endorse to day shift as pt does not want IV placed at this time. Pt appears very agitated and restless. She is upset that she cannot eat and that she had to do the bowel prep.
--- NOTE | 2018-09-02 06:38 | General Progress Note ---
Assessment/Plan Problem List: (1) COPD (chronic obstructive pulmonary disease) ICD Codes: J44.9 - Chronic obstructive pulmonary disease, unspecified SNOMED: 94244678 (2) Nausea, vomiting, and diarrhea ICD Codes: R11.2 - Nausea with vomiting, unspecified; R19.7 - Diarrhea, unspecified SNOMED: 9147001 (3) History of seizure ICD Codes: Z87.898 - Personal history of other specified conditions SNOMED: 608170136 (4) Uncontrolled diabetes mellitus ICD Codes: E11.65 - Type 2 diabetes mellitus with hyperglycemia SNOMED: 15257002, 864154147 Assessment/Plan: continue Levemir 18 units qam continue Starlix 120 mg ac tid continue NISS ac / hs Subjective Allergies: Coded Allergies: No Known Allergies (Unverified , 11/16/11) All Systems: reviewed and negative except above Subjective events noted elevated glucose yesterday due to non diabetic clear liquid Item Value Date Time Bedside Blood Glucose 130 mg/dl H 09/02/18 0554 Bedside Blood Glucose 289 mg/dl H 09/01/18 2100 Bedside Blood Glucose 472 mg/dl H 09/01/18 1729 Bedside Blood Glucose 110 mg/dl 09/01/18 0903 Bedside Blood Glucose 207 mg/dl H 09/01/18 0609 Objective Last 24 Hour Vital Signs Date Time Temp Pulse Resp B/P (MAP) Pulse Ox O2 Delivery O2 Flow Rate FiO2 09/02/18 04:00 97.6 80 19 149/92 (111) 96 09/02/18 00:00 98.4 88 20 154/98 (116) 100 09/01/18 21:00 Room Air 09/01/18 20:39 74 142/79 09/01/18 20:14 74 18 98 Room Air 21 09/01/18 20:00 98.5 82 19 154/96 (115) 99 09/01/18 16:00 97.4 74 16 142/79 (100) 99 09/01/18 13:09 66 18 100 Room Air 21 09/01/18 13:08 65 20 98 Room Air 21 09/01/18 12:00 97.5 65 18 140/97 (111) 98 09/01/18 09:06 73 144/71 09/01/18 09:00 Room Air 09/01/18 08:02 73 18 97 Room Air 21 09/01/18 08:00 98.2 68 16 144/71 (95) 98 Intake and Output 09/01/18 09/02/18 19:00 07:00 Intake Total 1450 ml 1350 ml Balance 1450 ml 1350 ml Intake Oral 1000 ml 600 ml IV Total 450 ml 750 ml # Voids 3 3 # Bowel Movements 8 Laboratory Tests 09/01/18 07:50: White Blood Count 5.5, Red Blood Count 4.06L, Hemoglobin 11.2L, Hematocrit 35.2L , Mean Corpuscular Volume 87, Mean Corpuscular Hemoglobin 27.5, Mean Corpuscular Hemoglobin Concent 31.7L, Red Cell Distribution Width 12.9, Platelet Count 153, Mean Platelet Volume 7.8, Neutrophils (%) (Auto) 51.2, Lymphocytes (%) (Auto) 37.3, Monocytes (%) (Auto) 6.7, Eosinophils (%) (Auto) 3.6H, Basophils (%) (Auto) 1.2, Sodium Level 141, Potassium Level 4.0, Chloride Level 107, Carbon Dioxide Level 26, Anion Gap 8, Blood Urea Nitrogen 30H, Creatinine 1.4H, Estimat Glomerular Filtration Rate 45.6, Glucose Level 92#, Lactic Acid Level 1.70, Calcium Level 8.5, Total Bilirubin 0.2, Aspartate Amino Transf (AST/SGOT) 35, Alanine Aminotransferase (ALT/SGPT) 25, Alkaline Phosphatase 79, Total Protein 6.3L, Albumin 2.3L, Globulin 4.0, Albumin/ Globulin Ratio 0.6L, Amylase Level 63, Lipase 109 Height (Feet): 5 Height (Inches): 6.00 Weight (Pounds): 194 General Appearance: no apparent distress Neck: normal alignment Cardiovascular: normal rate Respiratory/Chest: lungs clear Abdomen: normal bowel sounds Pelvis: normal external exam Objective Current Medications Medications (Trade) Dose Ordered Sig/Cassie Route PRN Reason Start Time Stop Time Status Last Admin Dose Admin Acetaminophen (Tylenol) 650 mg Q4H PRN ORAL T>100.5 08/29/18 19:45 09/28/18 19:44 Albuterol/ Ipratropium (Albuterol/ Ipratropium) 3 ml Q4H PRN HHN Shortness of Breath 08/29/18 19:45 09/03/18 19:44 09/01/18 13:08 Carvedilol (Coreg) 6.25 mg Q12HR ORAL 08/29/18 21:00 09/28/18 20:59 09/01/18 20:39 Clonidine HCl (Catapres Tab) 0.1 mg Q4H PRN ORAL sbp more than 160 08/29/18 19:45 09/28/18 19:44 Dextrose (Dextrose 50%) 25 ml Q30M PRN IV Hypoglycemia 08/31/18 11:00 09/30/18 10:59 Dextrose (Dextrose 50%) 50 ml Q30M PRN IV Hypoglycemia 08/31/18 11:00 09/30/18 10:59 Dextrose/ Electrolytes 1,000 ml @ 75 mls/hr [id number] IV 09/01/18 16:00 10/01/18 15:59 09/02/18 01:38 Heparin Sodium (Porcine) (Heparin 5000 units/ml) 5,000 units EVERY 12 HOURS SUBQ 08/29/18 21:00 09/28/18 20:59 08/31/18 21:43 Insulin Aspart (NovoLOG) BEFORE MEALS AND HS SUBQ 08/29/18 21:30 09/28/18 21:29 09/01/18 20:51 Insulin Detemir (Levemir) 18 units DAILY SUBQ 09/01/18 09:00 09/30/18 11:59 09/01/18 09:03 Metoclopramide HCl (Reglan) 5 mg Q6H PRN ORAL Nausea & Vomiting 08/30/18 13:30 09/29/18 13:29 Morphine Sulfate (Morphine Sulfate) 4 mg Q4H PRN IVP For Pain 08/29/18 23:00 09/05/18 22:59 09/01/18 20:39 Nateglinide (Starlix) 120 mg TIAC ORAL 09/01/18 11:30 09/30/18 11:29 09/01/18 17:28 Nitroglycerin (Ntg) 0.4 mg Q5MIN X 3 DOSES PRN SL Prn Chest Pain 08/29/18 20:00 09/28/18 19:59 08/30/18 05:03 Ondansetron HCl (Zofran) 4 mg Q6H PRN IVP Nausea & Vomiting 08/29/18 19:45 09/28/18 19:44 08/30/18 17:33 Polyethylene Glycol (Miralax) 17 gm HSPRN PRN ORAL Constipation 08/29/18 21:00 09/28/18 20:59 Promethazine HCl/ Codeine (Phenergan with Codeine) 5 ml Q6H PRN ORAL For Cough 08/31/18 03:15 09/30/18 03:14 Temazepam (Restoril) 15 mg HSPRN PRN ORAL Insomnia 08/29/18 21:00 09/05/18 20:59 08/31/18 23:15 Randolph Meléndez MD Sep 02, 2018 06:38
--- NOTE | 2018-09-02 07:28 | NUR ---
AMA: SEE AMA FORM. Pt left AMA with all her belongings but refused to sign belongings form, signed AMA form and understood risks and benefits. Left in stable condition with her wheelchair, ambulated with a security tech down the elevator. IV had already been removed, wrist band removed. Addendum: 09/02/18 at 0756 by Livier Hsieh RN pt was alert and oriented x4
[2018-09-02] MEDS ORDERED: Atropine Sulfate 0.4mg/ml inj IVP PRN (07:30)
[2018-09-02] MEDS ORDERED: fentaNYL 100 mcg/2 mL IV PRN (07:30)
[2018-09-02] MEDS ORDERED: DiphenhydrAMINE 50mg/ml Inj IVP PRN (07:30)
--- NOTE | 2018-09-02 07:37 | Anethesia Preoperative Eval ---
Anesthesia Pre-op PMH/ROS General Date of Evaluation: Sep 02, 2018 Time of Evaluation: 07:32 Anesthesiologist: patrick ASA Score: ASA 3 Mallampati Score Class I : Soft palate, uvula, fauces, pillars visible Class II: Soft palate, uvula, fauces visible Class III: Soft palate, base of uvula visible Class IV: Only hard plate visible Surgeon: beverly Diagnosis: anemia Surgical Procedure: egd/colonoscopy Anesthesia History: none Social History: current smoker, drug use Family History: no anesthesia problems Allergies: Coded Allergies: No Known Allergies (Unverified , 11/16/11) Medications: see eMAR Patient NPO?: Yes Past Medical History Cardiovascular: Reports: HTN, CAD, [place] Pulmonary: Reports: asthma, COPD Gastrointestinal/Genitourinary: Reports: other - diverticulosis Neurologic/Psychiatric: Reports: CVA, depression/anxiety, other - seizure Endocrine: Reports: DM Hematology/Immune: Reports: anemia PSxH Narrative: , cholecystectomy, cabg, appendectomy, Anesthesia Pre-op Phys. Exam Physician Exam Last Vital Signs Date Time Temp Pulse Resp B/P (MAP) Pulse Ox O2 Delivery O2 Flow Rate FiO2 09/02/18 04:00 97.6 80 19 149/92 (111) 96 09/01/18 21:00 Room Air 09/01/18 20:14 21 08/30/18 04:38 2.0 Anesthesia Pre-op A/P Labs Hematology Test 09/01/18 07:50 White Blood Count 5.5 K/UL (4.8-10.8) Red Blood Count 4.06 M/UL (4.20-5.40) L Hemoglobin 11.2 G/DL (12.0-16.0) L Hematocrit 35.2 % (37.0-47.0) L Mean Corpuscular Volume 87 FL (80-99) Mean Corpuscular Hemoglobin 27.5 PG (27.0-31.0) Mean Corpuscular Hemoglobin Concent 31.7 G/DL (32.0-36.0) L Red Cell Distribution Width 12.9 % (11.6-14.8) Platelet Count 153 K/UL (150-450) Mean Platelet Volume 7.8 FL (6.5-10.1) Neutrophils (%) (Auto) 51.2 % (45.0-75.0) Lymphocytes (%) (Auto) 37.3 % (20.0-45.0) Monocytes (%) (Auto) 6.7 % (1.0-10.0) Eosinophils (%) (Auto) 3.6 % (0.0-3.0) H Basophils (%) (Auto) 1.2 % (0.0-2.0) Chemistry Test 09/01/18 07:50 Sodium Level 141 MMOL/L (136-145) Potassium Level 4.0 MMOL/L (3.5-5.1) Chloride Level 107 MMOL/L (98-107) Carbon Dioxide Level 26 MMOL/L (21-32) Anion Gap 8 mmol/L (5-15) Blood Urea Nitrogen 30 mg/dL (7-18) H Creatinine 1.4 MG/DL (0.55-1.30) H Estimat Glomerular Filtration Rate 45.6 mL/min (>60) Glucose Level 92 MG/DL (74-106) # Lactic Acid Level 1.70 mmol/L (0.4-2.0) Calcium Level 8.5 MG/DL (8.5-10.1) Total Bilirubin 0.2 MG/DL (0.2-1.0) Aspartate Amino Transf (AST/SGOT) 35 U/L (15-37) Alanine Aminotransferase (ALT/SGPT) 25 U/L (12-78) Alkaline Phosphatase 79 U/L (46-116) Total Protein 6.3 G/DL (6.4-8.2) L Albumin 2.3 G/DL (3.4-5.0) L Globulin 4.0 g/dL Albumin/Globulin Ratio 0.6 (1.0-2.7) L Amylase Level 63 U/L (25-115) Lipase 109 U/L (73-393) Risk Assessment & Plan Assessment: asa3 Plan: Theodora Hardy MD Sep 02, 2018 07:37
--- NOTE | 2018-09-02 07:43 | NUR ---
NURSE NOTES: Pt left AMA. Informed Dr Quintana re pt not having the procedure and informed Dr Kc that pt left AMA. Informed rooming house operator, Trudi as well. Addendum: 09/02/18 at 0748 by Livier Hsieh RN time 0728
--- NOTE | 2018-09-02 12:29 | Discharge Summary ---
Discharge Summary Discharge Summary _ DATE OF ADMISSION: 08/29/2018 DATE OF DISCHARGE: 09/02/2018 Patient left AGAINST MEDICAL ADVICE REASON FOR ADMISSION: 67 years old female with past medical history of diabetes mellitus type 2, hypertension [id number], coronary artery disease, history of myocardial infarction in 2015, CABG, GERD, COPD, CVA/TIA, seizure disorder, appendectomy cholecystectomy, , history of polysubstance abuse, presented to emergency department complaining of nausea, vomiting, associated with diarrhea, from [facility]. Patient also reported diffuse abdominal pain. She denied chest pain or shortness of breath. Shortly after initial evaluation in the emergency department, she was admitted to the hospital with abdominal pain, nausea, vomiting, possibly due to pancreatitis Laboratory work-up revealed lipase 424, BUN 31, creatinine 1.6. Glucose 410. 9 Stable LFT Urinalysis +3 protein , +4 glucose. Abdominal x-ray revealed no acute findings. Patient admitted to medical surgical floor for management of abdominal pain, nausea, vomiting, diarrhea and uncontrolled blood sugar. CONSULTANTS: pulmonary Dr. Cummings GI specialist Dr. Qiuntana technical rep Dr. Meléndez [facility] HOSPITAL COURSE: Patient admitted to medical surgical floor. GI and job placement specialist followed. Patient started on IV hydration with close monitoring of volumes and cardiorenal parameters. Electrolytes corrected as needed. Patient started on clear liquid diet and was advanced as tolerated. Pain management was addressed as needed. Blood sugar was managed with sliding scale of insulin. Conference Translator followed. Hemoglobin A1c -13.1, clearly not at goal. Blood sugar was managed with long-acting Levemir, Starlix and sliding scale of insulin as needed. Diabetic teaching provided. Diabetic diet provided. Symptomatic treatment provided with Zofran on as needed basis and Reglan for persistent vomiting. GI specialist recommended endoscopy and colonoscopy, which was scheduled for since she did not have the colonoscopy for some years. Abdominal /pelvic CT was ordered to evaluate for abdominal pain. Hemoglobin and hematocrit were closely monitored with goal to keep hemoglobin above 7. Anemia work-up revealed evidence of anemia of chronic disease. No iron deficiency. Prior to signing AGAINST MEDICAL ADVICE hemoglobin 11.2, hematocrit 25.2. Elevated CEA noted. GI prophylaxis with PPI provided. Stool for C. difficile was ordered but not collected , since diarrhea resolved. Stool for occult blood was negative. Elevated CEA 9.3 noted. Creatinine from 1.6 down to 1.4. Nephrotoxins were avoided. Renal parameters and electrolytes were closely monitored. Supplemental oxygen titrated as needed to keep pulse oximetry above 92%. Pulmonary toilet was not standby. Pulse oximetry was stable on room air. No evidence of COPD exacerbation. DVT prophylaxis provided. Lipid panel stable. Blood pressure was closely monitored and managed with current regimen. Seizure precaution maintained. No evidence of seizure activity while in the hospital. On 09/02 fixed route operator patient decided to leave AGAINST MEDICAL ADVICE. Patient appeared agitated , due to the fact that she could not eat. The risks and consequences of signing AGAINST MEDICAL ADVICE were discussed with patient in detail. Patient verbalized understanding, nevertheless signed AMA form and left. FINAL DIAGNOSES: Abdominal pain, nausea and vomiting, possibly due to pancreatitis Diabetes mellitus type 2 out of control COPD History of CVA with residual defect Coronary arteries with history of IA Chronic kidney disease Seizure disorder GERD Hypertension Elevated CEA I have been assigned to dictate discharge summary for this account. I was not involved in the patient's management. Marjan Beauchamp NP Sep 02, 2018 12:29
--- NOTE | 2018-09-02 22:53 | Internal Med Progress Note ---
Subjective Physician Name Emanuel Kc Attending Physician Emanuel Kc MD Allergies: Coded Allergies: No Known Allergies (Unverified , 11/16/11) Subjective Awake, alert, responsive,. Objective Last Vital Signs Date Time Temp Pulse Resp B/P (MAP) Pulse Ox O2 Delivery O2 Flow Rate FiO2 09/02/18 08:16 70 16 97 Room Air 21 09/02/18 04:00 97.6 149/92 (111) 08/30/18 04:38 2.0 Intake and Output 09/01/18 09/02/18 19:00 07:00 Intake Total 1450 ml 1350 ml Balance 1450 ml 1350 ml Intake Oral 1000 ml 600 ml IV Total 450 ml 750 ml # Voids 3 3 # Bowel Movements 8 Objective GENERAL: Awake and responsive, no acute distress. HEAD AND NECK: Pupils are reactive to light. Extraocular movements intact. Neck was supple. No JVD. LUNGS: Good air entry. No wheezes or rales. HEART: Reveals S1 and S2. Distant heart sounds. No murmur or gallops. ABDOMEN: Soft, nondistended, and nontender. Morbidly obese. EXTREMITIES: No cyanosis, clubbing, or edema. NEUROLOGIC: Cranial nerves II through XII grossly intact. Motor is 5/5 in upper extremities and lower extremities weaker than upper extremities. RECTAL: Refused and deferred. GENITOURINARY: Refused and deferred. PSYCHIATRIC: Mood and affect is intact. Assessment/Plan Assessment/Plan ASSESSMENT: 1. Abdominal pain, nausea, and vomiting possibly pancreatitis. 2. Uncontrolled diabetes type 2. 3. History of cerebrovascular accident with residual defect. 4. Coronary artery disease with prior history of myocardial infarction. 5. Chronic kidney disease. 6. Seizure disorder. 7. Gastroesophageal reflux disease. 8. Hypertension. PLAN: 1. In medical floor. 2. Dr. Quintana for Gastroenterology consultation as well as Dr. Cummings, Pulmonary Critical Care. 3. Advance as tolerated. 4. IV hydration. 5. Code status: Full Code. 6. DVT prophylaxis. 7. Heparin subcutaneous. 8. Accu-Chek with sliding scale 9. Sign AMA. Giselle Costa Payam MD Sep 02, 2018 22:53
== END 2018-09-02 07:30 | disposition left against medical advice (07) | DRG 282 ==
LOC: EDBD 14:24 → EMR 17:54 → 4E 18:05 → EDBEDREQ 20:22
DX: K85.90 Acute pancreatitis without necrosis or infection, unspecified (principal); E11.65 Type 2 diabetes mellitus with hyperglycemia; J44.9 Chronic obstructive pulmonary disease, unspecified; I69.30 Unspecified sequelae of cerebral infarction; I25.10 Atherosclerotic heart disease of native coronary artery without angina pectoris; K21.9 Gastro-esophageal reflux disease without esophagitis; Z79.82 Long term (current) use of aspirin; Z79.4 Long term (current) use of insulin; I25.2 Old myocardial infarction; F19.11 Other psychoactive substance abuse, in remission; N18.9 Chronic kidney disease, unspecified; G40.89 Other seizures; Z95.1 Presence of aortocoronary bypass graft
CPT/HCPCS: 36415; 74018; 80048; 80053; 80061; 81001; 81003; 82043; 82150; 82270; 82378; 82550; 82607; 82746; 82962; 83036; 83540; 83550; 83605; 83615; 83690; 83735; 83935; 84100; 84300; 84439; 84443; 84550; 85007; 85025; 85044; 85060; 85610; 85651; 85730; 87081; 87086; 87324; 89050; 94640; 94664; 96361; 96374; 96375; 99285; J1815; J2405; J7620; S5561

== ENCOUNTER 2019-05-18 19:32 | Emergency (ER) | payer MEDICARE, OTHER ==
[~2019-05-18] VITALS: Ht 167.6 cm; Wt 113.4 kg
[2019-05-18 19:35] VITALS: BP 150/80
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
--- NOTE | 2019-05-18 19:55 | NUR ---
ED Nurse Note: Pt refused IV line and blood test. ERMD notified. Explained risk and benefits, verbally understood.
--- NOTE | 2019-05-18 20:05 | Emergency Room Report ---
History of Present Illness General Chief Complaint: Lower Back Pain or Injury Present Illness HPI Patient is a 68-year-old female presents after increased back pain. Prior history of alcohol abuse and pancreatitis. Reports having increased abdominal pain as well as low back pain. She states he drinks alcohol regularly. Denies any fever. Had not been vomiting.. Similar symptoms in the past. Patient was brought in by EMS. She was noted to have a wheelchair. She states she is normally able to walk. Allergies: Coded Allergies: No Known Allergies (Unverified , 11/16/11) COVID-19 Screening Contact w/high risk pt: No Recent Travel to affected area: No Experienced COVID-19 symptoms?: No Patient History Last Menstrual Period: unk Reviewed Nursing Documentation: PMH: Agreed; PSxH: Agreed Nursing Documentation-PMH Hx Cardiac Problems: Yes - [place] "2014, very recent" Hx Hypertension: Yes Hx Asthma: Yes - Emphysema Hx COPD: Yes Hx Diabetes: Yes Hx Cancer: No Hx Gastrointestinal Problems: Yes Hx Cerebrovascular Accident: Yes Hx Seizures: Yes Review of Systems All Other Systems: negative except mentioned in HPI Physical Exam Vital Signs Date Time Temp Pulse Resp B/P (MAP) Pulse Ox O2 Delivery O2 Flow Rate FiO2 05/18/19 19:26 98.2 80 20 150/80 (103) 94 Room Air Sp02 EP Interpretation: reviewed, normal General Appearance: normal inspection, alert, GCS 15, Chronically Ill Head: atraumatic ENT: normal ENT inspection, hearing grossly normal, normal voice Neck: normal inspection, full range of motion, supple, no bony tend Respiratory: normal inspection, lungs clear, normal breath sounds, no respiratory distress, no retraction, no wheezing Cardiovascular #1: regular rate, rhythm, no edema Gastrointestinal: normal inspection, normal bowel sounds, non tender, soft, no guarding, no hernia Genitourinary: no CVA tenderness Musculoskeletal: normal inspection, back normal, normal range of motion Neurologic: alert, motor strength/tone normal, safety leader III-XII nml as tested, oriented x3, responsive, speech normal, normal inspection Psychiatric: normal inspection, judgement/insight normal, mood/affect normal Medical Decision Making Diagnostic Impression: Primary Impression: Back pain Additional Impression: Diabetes mellitus ER Course Patient presented for low back pain. Differential diagnosis include was not limited to fracture, pancreatitis, traumatic injury among others. Laboratory testing was initially ordered however patient was poorly cooperative and refused. Patient appears to be stable for discharge. She was given medications for back pain. She is advised to follow-up with her primary care physician for recheck. The patient is advised to follow up with primary care doctor in 1-2 days. Patient is advised to return if any worsening condition or if any changes in status that are concerning. This report is dictated with Stumpwise associate spa director software which may occasionally lead to discrepancies related to use of this software. Last Vital Signs Date Time Temp Pulse Resp B/P (MAP) Pulse Ox O2 Delivery O2 Flow Rate FiO2 05/18/19 19:26 98.2 80 20 150/80 (103) 94 Room Air Status: improved Disposition: HOME, SELF-CARE Condition: Stable Scripts Hydrocodone Bit/Acetaminophen 5-325* (NORCO 5-325 TABLET*) 1 Each Tablet 1 TAB ORAL Q6H PRN for FOR PAIN, #10 TAB 0 Refills Prov: Corey Rodriguez MD 05/18/19 Corey Rodriguez MD May 18, 2019 20:05
[2019-05-18] MEDS ORDERED: NORCO 5-325 TA1 EAC1 ORAL (21:11)
[2019-05-18 21:30] VITALS: BP 148/85
--- NOTE | 2019-05-18 21:30 | NUR ---
ED Nurse Note: Pt cleared by ERMD for discharge. DC instructions/prescription was given and explained to pt and verbalized understanding of teachings. All medical deviecs such as ID band removed. Pt is AAO x4, ambulatory and left with all personal belongings. Pt will take the bus.
== END 2019-05-18 21:30 | disposition home or self-care (01) ==
LOC: EDBD 19:32 → EMR 19:50
DX: M54.5 Low back pain (principal); R10.9 Unspecified abdominal pain; I10 Essential (primary) hypertension; I25.2 Old myocardial infarction; J44.9 Chronic obstructive pulmonary disease, unspecified; E11.9 Type 2 diabetes mellitus without complications; G40.909 Epilepsy, unspecified, not intractable, without status epilepticus; Z86.73 Personal history of transient ischemic attack (TIA), and cerebral infarction without residual deficits
CPT/HCPCS: 99281

== ENCOUNTER 2019-06-04 18:20 | Emergency (ER) | payer MEDICARE, OTHER ==
[~2019-06-04] VITALS: Ht 162.6 cm; Wt 73.9 kg
[~2019-06-04 18:20] MED LIST changes: +NORCO 5-325 TA1 EAC1 ORAL
[2019-06-04 18:32] VITALS: BP 112/70
--- NOTE | 2019-06-04 18:32 | NUR ---
ED Nurse Note: Patient ROBERTO VASQUEZ from [facility] c/o cough x couple of days. Stated that her last alcohol intake was this morning, unk amount. No fever. No acute distress. VSS.
--- NOTE | 2019-06-04 19:05 | NUR ---
ED Nurse Note: extractions technologist came to do x ray and pt refused. explained risk and benefits but still refused.
--- NOTE | 2019-06-04 19:09 | Emergency Room Report ---
History of Present Illness General Chief Complaint: Upper Respiratory Illness Source: Patient Present Illness HPI 68-year-old female presents to the emergency department complaining of productive cough x3 days. Patient reports symptoms are progressive she describes greenish colored sputum. Patient reports nasal congestion and rhinorrhea. She denies pain at this time however she states she has history of chronic pain and with persistent coughing sometimes exacerbates her pain. Patient denies fevers or chills. Patient is also reporting that she was picked up by ambulance and they did not bring her wheelchair. Patient is ambulatory. Denies sore throat, ear pain, high fevers, lethargy, neck pain/stiffness, irritability, photophobia dehydration, N/V/D. Denies Cp, SOB, Palpitations, LOC , AMS, seizures, paresthesias, or changes in Hearing or vision, no Sudden severe JONES. Denies recent travel. Denies contact with persons who have tested positive for or are under investigation/quarantine for COVID-19. Allergies: Coded Allergies: No Known Allergies (Unverified , 11/16/11) COVID-19 Screening Contact w/high risk pt: No Recent Travel to affected area: No Experienced COVID-19 symptoms?: Yes COVID-19 symptoms experienced: Cough Patient History Past Medical History: see triage record, HTN, [place] Past Surgical History: none Pertinent Family History: none Now: No Reviewed Nursing Documentation: PMH: Agreed; PSxH: Agreed Nursing Documentation-PMH Past Medical History: No Stated History Hx Cardiac Problems: Yes - [place] "2014, very recent" Hx Hypertension: Yes Hx Asthma: Yes - Emphysema Hx COPD: Yes Hx Diabetes: Yes Hx Cancer: No Hx Gastrointestinal Problems: Yes Hx Cerebrovascular Accident: Yes Hx Seizures: Yes Review of Systems All Other Systems: negative except mentioned in HPI Physical Exam Vital Signs Date Time Temp Pulse Resp B/P (MAP) Pulse Ox O2 Delivery O2 Flow Rate FiO2 06/04/19 18:27 98.8 99 19 112/70 (84) 98 Room Air Sp02 EP Interpretation: reviewed, normal General Appearance: no apparent distress, alert, GCS 15, non-toxic Head: normocephalic, atraumatic Eyes: bilateral eye normal inspection, bilateral eye PERRL ENT: hearing grossly normal, normal voice Neck: full range of motion Respiratory: chest non-tender, lungs clear, normal breath sounds, no respiratory distress, no accessory muscle use, no wheezing, speaking full sentences Cardiovascular #1: regular rate, rhythm, no edema, normal capillary refill Rectal: deferred Musculoskeletal: back normal, normal range of motion, gait/station normal - ambulatory without assistance., non-tender, other - Pt. ambulatory Neurologic: alert, motor strength/tone normal, oriented x3, sensory intact, responsive, speech normal Psychiatric: judgement/insight normal Lymphatic: no adenopathy Medical Decision Making PA Attestation Dr. Alejo is my supervising Physician whom patient management has been discussed with. Diagnostic Impression: Primary Impression: Upper respiratory symptom Additional Impression: Chronic pain Qualified Codes: G89.4 - Chronic pain syndrome ER Course Pt. presents to the ED with s/sx c/w URI in the setting of a local COVID-19 Outbreak. - This PT. was triaged outside the facility in a designated staging area and placed into isolation tent. - Full PPE for airborne/droplet isolation (booties, Gown, doubled nitrile gloves, N95 Mask covered by Surgical mask w. face shield, and hair net) was donned in the designated HCP staging area prior to pt. interaction. 68-year-old female presents to the emergency department complaining of productive cough x3 days. Patient reports symptoms are progressive she describes greenish colored sputum. Patient reports nasal congestion and rhinorrhea. She denies pain at this time however she states she has history of chronic pain and with persistent coughing sometimes exacerbates her pain. Patient denies fevers or chills. Patient is also reporting that she was picked up by ambulance and they did not bring her wheelchair. Patient is ambulatory. Denies sore throat, ear pain, high fevers, lethargy, neck pain/stiffness, irritability, photophobia dehydration, N/V/D. Denies Cp, SOB, Palpitations, LOC , AMS, seizures, paresthesias, or changes in Hearing or vision, no Sudden severe JONES. Denies recent travel. Denies contact with persons who have tested positive for or are under investigation/quarantine for COVID-19. Ddx considered but are not limited to URI, pneumonia, PE, strep pharyngitis, meningitis, COVID-19 Vital signs: Pt. is afebrile, the remaining VS are WNL H&PE are most consistent with URI- no meningeal signs, oropharynx is not involved, no evidence of bacterial infection at this time. Not in respiratory distress, Pt. is not hypoxic. ORDERS: -CXR 1 view: Declined by PT. ED INTERVENTIONS: None required at this time. This patient was evaluated in the context of the global COVID-19 pandemic, which necessitated consideration that the patient might be at risk for infection with the SARS-COV-2 virus that causes COVID-19. Institutional protocols and algorithms that pertaining to the evaluation of patients at risk for COVID-19 are in a state of rapid change based on information released by multiple regulatory bodies including the CDC and federal and state organizations. These policies and algorithms were followed during the patient' s care in the emergency department --PT. EDUCATION: Discussed antibiotic resistance with inappropriate prescribing of antibiotics for viral illnesses. Discussed signs and symptoms to indicate viral illness versus bacterial illness. PT. eloped and returned to ED multiple times before finally receiving her DC paperwork DISCHARGE: At this time pt. is stable for d/c to home. Will provide printed patient care instructions, and any necessary prescriptions. Care plan and follow up instructions have been discussed with the patient prior to discharge. Chest X-Ray Diagnostic Results Chest X-Ray Diagnostic Results : Chest X-Ray Ordered: Yes # of Views/Limited/Complete: 1 View EP Interpretation: Yes IKER Xray: Interpretation reviewed, by supervising MD, and agrees with findings. Interpretation: no consolidation, no effusion, no pneumothorax, no acute cardiopulmonary disease Impression: No acute disease Electronically Signed by: Pau Ruvalcaba PA-C Last Vital Signs Date Time Temp Pulse Resp B/P (MAP) Pulse Ox O2 Delivery O2 Flow Rate FiO2 06/04/19 18:32 99 19 Room Air 06/04/19 18:32 98.8 112/70 98 Disposition: HOME, SELF-CARE Condition: Stable Scripts D-Methorphan Hb/Prometh Hcl* (PROMETHAZINE-DM SYRUP*) 118 Ml Syrup 5 ML ORAL Q6H PRN for For Cough, #120 ML 0 Refills Prov: Pau Ruvalcaba 06/04/19 Referrals: [facility] Patient Instructions: Upper Respiratory Infection, Adult Additional Instructions: Take medications as directed. Follow up with a Primary Care Provider in 3-5 days, even if your symptoms have resolved. --Please review list of primary care clinics, if you do not already have a primary care provider Return sooner to ED if new symptoms occur, or current symptoms become worse. - Please note that this Emergency Department Report was dictated using Splinter.meglass laminating operator technology software, occasionally this can lead to erroneous entry secondary to interpretation by the dictation equipment. Pau Ruvalcaba Jun 04, 2019 19:09
--- NOTE | 2019-06-04 19:10 | NUR ---
ELOPEMENT: pt eloped. pt walked away from the tent.
[2019-06-04] MEDS ORDERED: PROMETHAZINE-D118 ML ORAL (19:38)
--- NOTE | 2019-06-04 19:40 | NUR ---
ED Nurse Note: pt returned back to picker machine operator discharge paper. discharge paper given. pt took all belonging with her and left with steady gait.
[2019-06-05] MEDS ORDERED: GLUCOPHAGE500 MG ORAL (00:11)
[2019-06-05] MEDS ORDERED: MACROBID100 MG ORAL (01:18)
== END 2019-06-04 19:40 | disposition home or self-care (01) ==
LOC: EDBD 18:20 → EMR 19:05
DX: J06.9 Acute upper respiratory infection, unspecified (principal); G89.4 Chronic pain syndrome; I10 Essential (primary) hypertension; I25.2 Old myocardial infarction; J44.9 Chronic obstructive pulmonary disease, unspecified; E11.9 Type 2 diabetes mellitus without complications; G40.909 Epilepsy, unspecified, not intractable, without status epilepticus; Z86.73 Personal history of transient ischemic attack (TIA), and cerebral infarction without residual deficits
CPT/HCPCS: 99282

== ENCOUNTER 2019-10-18 12:00 | Emergency (ER) | payer MEDICARE, OTHER ==
[~2019-10-18] VITALS: Ht 162.6 cm; Wt 90.7 kg
[~2019-10-18 12:00] MED LIST changes: +GLUCOPHAGE500 MG ORAL; +MACROBID100 MG ORAL; +PROMETHAZINE-D118 ML ORAL
[2019-10-18 12:10] VITALS: BP 166/86
--- NOTE | 2019-10-18 12:18 | Emergency Room Report ---
History of Present Illness General Chief Complaint: Lower Back Pain or Injury Source: Patient, EMS Present Illness HPI Patient brought to the ER via EMS. The patient suffered a vertebral body fracture 3 months ago. She was hospitalized in [facility] [place] for 3 weeks. She left AGAINST MEDICAL ADVICE. She has been on the streets. 2 days ago she fell again and reinjured her back. It feels the same as when she had a fracture. He has had weakness. She has been incontinent for several weeks. She is incontinent of stool. She also has edema of her lower extremities and states the back pain radiates down her legs also. She walks with her wheelchair as support. She denies head trauma. She denies headache. Someone gave her something to eat yesterday that led to nausea and vomiting. She still feels nauseated at this time. She denies fevers or chills. Patient has an occasional cough that is nonproductive. She denies chest pain or abdominal pain. She denies dysuria. The patient has a history of psychiatric illness. She denies suicidal or homicidal ideation. Allergies: Coded Allergies: No Known Allergies (Unverified , 11/16/11) COVID-19 Screening Contact w/high risk pt: No Recent Travel to affected area: No Experienced COVID-19 symptoms?: No COVID-19 symptoms experienced: Cough COVID-19 Testing performed SHAKE BACKBOARD NOTCHER: No Patient History Past Medical History: see triage record Past Surgical History: CABG, oscar, Social History: Reports: smoking, alcohol use, drug use Social History Narrative from streets Last Menstrual Period: na Reviewed Nursing Documentation: PMH: Agreed; PSxH: Agreed Nursing Documentation-PMH Past Medical History: No History, Except For Hx Cardiac Problems: Yes - [place] 2014 Hx Hypertension: Yes Hx Asthma: Yes - Emphysema Hx COPD: Yes Hx Diabetes: Yes Hx Cancer: No Hx Gastrointestinal Problems: Yes History Of Psychiatric Problem: Yes Hx Cerebrovascular Accident: Yes Hx Seizures: Yes Review of Systems All Other Systems: negative except mentioned in HPI Physical Exam Vital Signs Date Time Temp Pulse Resp B/P (MAP) Pulse Ox O2 Delivery O2 Flow Rate FiO2 10/18/19 12:00 99.1 96 18 140/90 (107) 98 Room Air Sp02 EP Interpretation: reviewed, normal General Appearance: no apparent distress, obese, other - Disheveled Head: normocephalic, atraumatic Eyes: bilateral eye normal inspection, bilateral eye PERRL, bilateral eye EOMI ENT: moist mucus membranes Neck: full range of motion, supple, no bony tend Respiratory: chest non-tender, lungs clear, normal breath sounds Cardiovascular #1: regular rate, rhythm, edema - 3+ pitting bilaterally Cardiovascular #2: 2+ radial (R) Gastrointestinal: normal bowel sounds, non tender, soft, overweight Genitourinary: no CVA tenderness Musculoskeletal: normal range of motion, no calf tenderness, tender - Lumbar area Neurologic: motor strength/tone normal, target network analyst III-XII nml as tested, oriented, DTRs symmetric, sensory intact, cerebellar normal, speech normal, other - Slight left facial weakness Psychiatric: no suicidal/homicidal ideation, other - Abusive with staff and intermittently compliant Skin: warm/dry Medical Decision Making Homeless Attestation I, The treating physician Dr. Arambula, have assessed and agree that patient is medically stable for discharge to an outpatient disposition. Diagnostic Impression: Primary Impression: Fall Qualified Codes: W19.XXXA - Unspecified fall, initial encounter Additional Impressions: Edema Qualified Codes: R60.9 - Edema, unspecified Personality disorder ER Course Patient presents with back neck pain post fall 2 days ago with recent history of lumbar fracture. Differential includes secondary fracture, contusion, chronic back pain exacerbation amongst others. She complains of incontinence which is longstanding. She does have lower extremity weakness which which needs to be reassessed. CT lumbar spine is indicated. In addition the patient is complaining about nausea. Differential includes food poisoning, C. difficile , gastritis amongst others. Cardiac disease needs to be excluded. Finally she has significant edema in her lower extremities. Evaluation with EKG, chest x- ray and labs. She states this is a chronic problem. Exam is inconsistent with DVT at this time. C. difficile toxin ordered from stool. EKG without injury. Chest x-ray post CABG with some atelectasis in the bases. CT is lumbar spine with L1 fracture of indeterminate age. Patient refusing further laboratory evaluation. Discussion with patient about starting a central line to obtain labs. Patient initially in agreement but then refuses. She insists on going out to smoke. Patient ambulated with wheelchair outside to smoke. No lower extremity weakness. When patient returned from smoking she requested Zofran and Tylenol. These were ordered. Discussed with patient that as she was ambulatory that significant injury to her back was unlikely. She states that she does not want further work-up at this time. She just wants something to eat. The patient was clean and A&E ointment was applied. Patient tolerated sandwiches and juice without difficulty. Patient insisted on leaving the emergency department. No medical emergency at this time. Patient stable for outpatient observation and treatment. EKG Diagnostic Results Rate: normal Rhythm: NSR ST Segments: no acute changes Rhythm Strip Diag. Results EP Interpretation: yes Rhythm: NSR, no PVC's, no ectopy Chest X-Ray Diagnostic Results Chest X-Ray Diagnostic Results : Chest X-Ray Ordered: Yes # of Views/Limited/Complete: 1 View Indication: Other EP Interpretation: Yes Interpretation: no effusion, no pneumothorax, other - increased justice at bases Impression: Other Electronically Signed by: Electronically signed by Andrei Arambula MD Last Vital Signs Date Time Temp Pulse Resp B/P (MAP) Pulse Ox O2 Delivery O2 Flow Rate FiO2 10/18/19 15:15 98.3 76 16 126/74 99 Room Air Status: improved Disposition: HOME, SELF-CARE Condition: Improved Scripts Acetaminophen (Tylenol) 325 Mg Tablet 650 MG ORAL Q6H PRN for Prn Pain/Headache/Temp > 101, #30 TAB 0 Refills Prov: Andrei Arambula MD 10/18/19 Ondansetron Odt* (ZOFRAN ODT*) 4 Mg Tab.rapdis 4 MG BC EVERY 8 HOURS, #10 TAB 0 Refills Prov: Andrei Arambula MD 10/18/19 Andrei Arambula MD Oct 18, 2019 12:18
--- NOTE | 2019-10-18 12:20 | NUR ---
ED Nurse Note: Pt from street and brought in by ambulance due to chronic lower back pain. No reports of injury. Also noted diarrhea on pt's clothes and severe edema on lower legs.. AAO x4, non ambulatory with non labored breathing.
--- NOTE | 2019-10-18 12:33 | NUR ---
HAND-OFF: Report given to Clarissa BRYAN.
--- NOTE | 2019-10-18 12:51 | NUR ---
ED Nurse Note: Pt refusing IV in most areas and being noncompliant. 2 RNs have attempted at IV, ERMD aware.
--- NOTE | 2019-10-18 12:52 | NUR ---
ED Nurse Note: Pt is noncompliant and refusing IV from RNs. However, when another person walks in the room, she says "She's a liar! I'm not refusing!" but continues to refuse IV from RNs. ERMD aware.
--- NOTE | 2019-10-18 12:55 | NUR ---
ED Nurse Note: Pt taken to XR.
--- NOTE | 2019-10-18 13:36 | Diagnostic Imaging Report ---
EXAM: XR Chest, 1 View CLINICAL HISTORY: TRAUMA TECHNIQUE: Frontal view of the chest. COMPARISON: Chest radiograph on 06/04/2019 FINDINGS: Hardware: None. Lungs/pleura: Low lung volumes. Diffuse hazy and interstitial opacities. No pleural effusion or pneumothorax. Heart/mediastinum: Stable enlargement of the cardiac silhouette. Median sternotomy and CABG changes. Soft tissues: Unremarkable. Bones: No acute fracture. Degenerative changes of the acromioclavicular joints and spine. Upper abdomen: Normal. IMPRESSION: Diffuse hazy and interstitial opacities may represent atelectasis versus pulmonary vasculature congestion and edema. Infectious/inflammatory process is not excluded.
--- NOTE | 2019-10-18 13:41 | Diagnostic Imaging Report ---
EXAM: CT Lumbar Spine Without Intravenous Contrast CLINICAL HISTORY: TRAUMA TECHNIQUE: Axial computed tomography images of the lumbar spine without intravenous contrast. CTDI is 9.7 mGy and DLP is 338.2 mGy-cm. One or more of the following dose reduction techniques were used: automated exposure control, adjustment of the mA and/or kV according to patient size, use of iterative reconstruction technique. COMPARISON: None FINDINGS: Bones: Age indeterminate compression deformity of the L1 vertebral body, likely acute or subacute. Mild retropulsion of the posterior cortex which causes [id number] spinal canal stenosis. Osteopenia. Scoliosis. Disc spaces: Mild to moderate spinal canal stenosis at the level of L1. Degenerative changes of the spine. Grade 1 anterolisthesis of L2 on L3 and L3 on L4. Moderate to severe spinal canal stenosis at L2-3 and L3-4. Mild spinal canal stenosis at L4-5. Moderate spinal canal stenosis at L5-S1. Moderate bilateral neural foraminal stenoses at T11-12. Bilateral neural foraminal stenoses at T12-L1. Severe bilateral neural foraminal stenoses at L1-2. Moderate to severe neural foraminal stenoses at L2-3. Severe left and moderate right neural foraminal stenoses at L3- 4. Moderate bilateral neural foraminal stenoses at L4-5. Severe bilateral neural foraminal stenoses at L5-S1. Soft tissues: Normal. Other: Atherosclerotic changes of the vasculature. Prior cholecystectomy. Mildly prominent extrarenal pelvises. Phleboliths in the pelvis. Diverticulosis. IMPRESSION: 1. Age indeterminate compression deformity of the L1 vertebral body, likely acute or subacute. Mild retropulsion of the posterior cortex which causes [id number] spinal canal stenosis. 2. Degenerative changes of the spine with stenoses as described above.
[2019-10-18] MEDS ORDERED: Acetaminophen 500mg (ES) tab ORAL ONE (13:45)
--- NOTE | 2019-10-18 14:08 | NUR ---
ED Nurse Note: C Diff sample sent. Pt notified that Tylenol adn Zofran are oirdered, but pt states she wants to go outside to smoke first. Lab is also here to draw labs, but pt states she wants to smoke first.
[2019-10-18 14:14] VITALS: BP 158/85
[2019-10-18] MEDS ORDERED: ONDANSETRON ODT4 MG BC (14:23)
[2019-10-18] MEDS ORDERED: TYLENOL325 MG ORAL (14:23)
[2019-10-18] MEDS ORDERED: Vitamin A&D Oint Tube TOPIC STA (14:29)
[2019-10-18 15:15] VITALS: BP 126/74
--- NOTE | 2019-10-18 15:15 | NUR ---
ER DISCHARGE NOTE: Patient is cleared to be discharged per ERMD, pt is aox4, on room air, with stable vital signs. pt was given dc and prescription instructions, pt was able to verbalize understanding, pt id band removed. pt is able to ambulate with steady gait. pt took all belongings. ERMD ok with patient being discharged without labs drawn or IV meds administered.
== END 2019-10-18 15:15 | disposition home or self-care (01) ==
LOC: EDBD 12:00 → EMR 12:25 → EDBEDREQ 12:27 → CANBEDREQ 14:29 → EMR 15:15
DX: R60.9 Edema, unspecified (principal); F60.9 Personality disorder, unspecified; E66.9 Obesity, unspecified; R60.0 Localized edema; F17.200 Nicotine dependence, unspecified, uncomplicated; Z87.891 Personal history of nicotine dependence; I25.2 Old myocardial infarction; E11.9 Type 2 diabetes mellitus without complications; G40.909 Epilepsy, unspecified, not intractable, without status epilepticus; Z86.73 Personal history of transient ischemic attack (TIA), and cerebral infarction without residual deficits; W19.XXXA Unspecified fall, initial encounter; Y92.9 Unspecified place or not applicable; R05 Cough; Z90.49 Acquired absence of other specified parts of digestive tract; Z68.34 Body mass index [BMI] 34.0-34.9, adult
CPT/HCPCS: 71045; 72131; 93005; 96374; 99284